=== PATIENT | male | born 1970 | race African-American/Black ===

== ENCOUNTER 2020-03-08 03:37 | Emergency (ER) | payer OTHER, SELFPAY ==
--- NOTE | ~2020-03-08 | XR_ITS ---
EXAMINATION: XR ribs RT 2V w CXR 2V DATE: 03/08/2020 05:00 INDICATION: Midsternal chest pain TECHNIQUE: PA and lateral views of the chest and 3 views of the right ribs were obtained. COMPARISON: Chest radiograph dated 04/10/2019 FINDINGS: No rib fractures identified. Mild linear discoid atelectasis in the right middle lobe. No other airsp jesse opacities, pulmonary edema, pleural effusion or pneumothorax. Cardiomediastinal silhouette is nor mal. IMPRESSION: 1. Mild discoid atelectasis in the right middle lobe. No rib fracture or acute cardiopulmonary diseas e. Reviewed, dictated and finalized at location A. IMPRESSION: 1. Mild discoid atelectasis in the right middle lobe. No rib fracture or acute cardiopulmonary disease.
[2020-03-08 03:40] VITALS: BP 151/116; PULSE 78; RESP 18; TEMP 36.8; O2SAT 98
--- NOTE | 2020-03-08 04:31 | ECG_ITS ---
Measurements Intervals [place] Rate: 79 P: 36 [place]: 156 QRS: 18 QRSD: 99 T: 30 QT: 385 QTc: 441 Interpretive Statements SINUS RHYTHM VOLTAGE CRITERIAL FOR LVH NONSPECIFIC T-WAVE ABNORMALITY- INFERIOR LEADS BASELINE ARTIFACT- I, III BORDERLINE ECG Electronically Signed On 03-08-2020 7:06:38 CDT by Raymundo Catalan D.O.
[2020-03-08] MEDS: ACETAMINOPHEN 325 MG TABLET 650 MG PO (05:13)
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
[2020-03-08 06:26] VITALS: BP 141/87; PULSE 78; RESP 16; O2SAT 100
== END 2020-03-08 06:27 | disposition home or self-care (01) ==
PROVIDERS: Emergency Provider Emergency Medicine; PCP Internal Medicine Infectious Disease
DX: F32.9 Major depressive disorder, single episode, unspecified (principal); I10 Essential (primary) hypertension; Z87.820 Personal history of traumatic brain injury; F17.200 Nicotine dependence, unspecified, uncomplicated; R07.89 Other chest pain; R94.31 Abnormal electrocardiogram [ECG] [EKG]
CPT/HCPCS: 71046; 71100; 93005; 99284; A9270

== ENCOUNTER 2021-04-16 00:18 | Emergency (ER) | payer OTHER, SELFPAY ==
[2021-04-16 00:35] VITALS: BP 143/90; PULSE 84; RESP 18; TEMP 36.9; O2SAT 95
--- NOTE | 2021-04-16 00:50 | ECG_ITS ---
Measurements Intervals [place] Rate: 85 P: 50 [place]: 154 QRS: 29 QRSD: 111 T: 13 QT: 384 QTc: 458 Interpretive Statements SINUS RHYTHM INTRAVENTRICULAR CONDUCTION DELAY NONSPECIFIC T-WAVE ABNORMALITY- INFERIOR LEADS BORDERLINE ECG Electronically Signed On 04-16-2021 6:55:58 CDT by Raymundo Catalan D.O.
[2021-04-16 01:38] LABS: Basophils Percent Auto 0.5 % (0.2-1.2); Eosinophils Absolute Auto 0.2 K/mm3 (0-0.3); Eosinophils Percent Auto 1.8 % (0-4.4); Hematocrit 46.8 % (42.0-52.0); Hemoglobin 15.7 g/dL (14.0-18.0); Immature Granulocyte Absolute 0.03 K/mm3 (0.00-0.031); Immature Granulocyte Percent A 0.4 % (0-0.5); Lymphocytes Absolute Auto 2.96 K/mm3 (0.9-3.2); Lymphocytes Percent Auto 34.9 % (18.3-44.2); Mean Corpuscular HGB Conc 33.5 g/dl (32-36); Mean Corpuscular Hemoglobin 29.3 pg (26-34); Mean Corpuscular Volume 87.3 fl (80-100); Mean Platelet Volume 10.6 fl (7.4-10.4); Monocytes Absolute Auto 0.7 K/mm3 (0.1-0.6); Monocytes Percent Auto 8.6 % (2.6-8.5); Neutrophils Absolute Auto 4.6 K/mm3 (1.3-6.7); Neutrophils Percent Auto 53.8 % (45.5-73.1); Platelet Count Result 219 k/mm3 (150-375); Red Blood Count 5.36 M/mm3 (4.6-6.20); Red Cell Distribution Width 13.7 % (11.5-14.5); White Blood Count 8.5 K/mm3 (4.5-10.0)
[2021-04-16 01:40] LABS: Alanine Aminotransferase 33 U/L (4-50); Albumin Level 4.8 g/dL (3.5-5.1); Alkaline Phosphatase 70 U/L (38-126); Anion Gap 14 mmol/L (8-16); Aspartate Amino Transferase 31 U/L (17-59); Bilirubin,Total 0.2 mg/dL (0.2-1.3); Blood Urea Nitrogen 10 mg/dL (9-20); Calcium 9.6 mg/dL (8.4-10.2); Carbon Dioxide 21 mmol/L (22-30); Chloride 100 mmol/L (98-107); Estimated Glomerular Filt Rate > 60; Glucose 82 mg/dL (65-110); Potassium 3.7 mmol/L (3.4-5.0); Sodium 135 mmol/L (137-145)
[2021-04-16 01:49] LABS: Ethanol 118 mg/dL (<10)
--- NOTE | 2021-04-16 02:06 | ED.GENADULT ---
HPI - General Adult General Chief complaint: Seizure Stated complaint: seizure Time Seen by Provider: 04/16/21 00:57 History of Present Illness HPI narrative: Patient is a 50-year-old gentleman who presents the emergency department with chief complaint of possible seizure. The patient was found down by a local bar and was slightly confused afterwards. The patient upon arrival to the emergency department has no complaints at this time reports that he has a seizure history and reports he may have had a seizure. The patient states currently he has no complaints. Related Data Home Medications Medication Instructions Recorded Confirmed amlodipine 10 mg PO DAILY 07/12/19 07/12/19 citalopram 40 mg PO DAILY 07/12/19 07/12/19 doxycycline monohydrate 100 mg PO BID 07/12/19 07/12/19 folic acid 1 mg PO DAILY 07/12/19 07/12/19 oxcarbazepine 300 mg PO BID 07/12/19 07/12/19 ranitidine HCl 150 mg PO BID 07/12/19 07/12/19 spironolactone 50 mg PO DAILY 07/12/19 07/12/19 umeclidinium [Incruse Ellipta] 1 inh INHALATION DAILY 07/12/19 07/12/19 Allergies Allergy/AdvReac Type Severity Reaction Status Date / Time lisinopril Allergy Severe angio edema Verified 04/28/20 09:04 Iodinated Contrast Media Allergy Unknown Verified 04/28/20 09:04 iodine Allergy Unknown Verified 04/28/20 09:04 Contrast Media Allergy Mild Uncoded 04/28/20 09:04 Review of Systems Review of Systems: A 10 system review of systems was completed on the patient and is negative except for what is stated in the HPI. Nursing and ancillary documentation was reviewed. [facility] Past Medical History Medical History Depression Hypertension Polysubstance abuse Seizures Traumatic brain injury Surgical History Surgical History H/O craniotomy Family History Family History Other Diabetes mellitus Family history of seizure disorder Social History Social History Smoking status: Current every day smoker Alcohol intake: current Substance use type: crack/cocaine Gender identity (if verbalized by the patient): Male Exam Narrative: GENERAL: Well-appearing, well-nourished, and in no acute distress. HEAD: Normocephalic, atraumatic. EYES: PERRLA and EOMI. ENT: Nares clear, no rhinorrhea or epistaxis. Mucous membranes moist. NECK: Supple. CHEST: Clear to auscultation. No respiratory distress. HEART: Regular rate and rhythm. No murmur heard. Normal peripheral pulses. ABDOMEN: Soft, nontender, nondistended, normal active bowel sounds. EXTREMITIES: Normal range of motion. No edema. SKIN: Warm, dry, no rash. NEURO: No focal deficits. Alert and oriented x3 at baseline neurological status history of TBI. PSYCH: Normal mood and affect. Course Course Emergency Course: Patient has been observed in the emergency department and is currently back to his baseline and has no complaints Vital Signs Vital signs: Vital Signs Temperature 36.9 C 04/16/21 00:35 Pulse Rate 84 04/16/21 00:35 Respiratory Rate 18 04/16/21 00:35 Blood Pressure 143/90 H 04/16/21 00:35 Pulse Oximetry 95 04/16/21 00:35 Temperature 36.9 C 04/16/21 00:35 Pulse Rate 84 04/16/21 00:35 Respiratory Rate 18 04/16/21 00:35 Blood Pressure 143/90 H 04/16/21 00:35 Pulse Oximetry 95 04/16/21 00:35 Medical Decision Making Vital Signs Vital Signs: Vital Signs Temperature 36.9 C 04/16/21 00:35 Pulse Rate 84 04/16/21 00:35 Respiratory Rate 18 04/16/21 00:35 Blood Pressure 143/90 H 04/16/21 00:35 Pulse Oximetry 95 04/16/21 00:35 Temperature 36.9 C 04/16/21 00:35 Pulse Rate 84 04/16/21 00:35 Respiratory Rate 18 04/16/21 00:35 Blood Pressure 143/90 H 04/16/21 00:35 Pulse Oximetry 95 04/16/21 00:3
[2021-04-16 02:27] VITALS: BP 140/71; PULSE 80; RESP 18; O2SAT 99
== END 2021-04-16 02:28 | disposition home or self-care (01) ==
PROVIDERS: Emergency Provider Emergency Medicine; PCP Internal Medicine Infectious Disease
DX: G40.909 Epilepsy, unspecified, not intractable, without status epilepticus (principal); F32.9 Major depressive disorder, single episode, unspecified; I10 Essential (primary) hypertension; F17.200 Nicotine dependence, unspecified, uncomplicated
CPT/HCPCS: 36415; 80053; 80307; 85025; 85055; 93005; 99283

== ENCOUNTER 2021-07-11 14:45 | Emergency (ER) | payer OTHER, SELFPAY ==
--- NOTE | ~2021-07-11 | XR_ITS ---
EXAMINATION: XR chest 1V portable INDICATION: Seizure TECHNIQUE: Portable AP chest at 1541 hours COMPARISON: 03/08/2021 FINDINGS: The lungs are free of acute opacities. There is no pleural effusion or pneumothorax. The ca rdiomediastinal silhouette is normal. IMPRESSION: 1. No acute cardiopulmonary abnormality. Reviewed, dictated and finalized at location B. E [employer]
[2021-07-11 14:43] VITALS: BP 133/77; PULSE 98; RESP 20; TEMP 36.9; O2SAT 92
[2021-07-11 14:53] VITALS: BP 127/85; PULSE 90; RESP 15; O2SAT 96
[2021-07-11 15:03] VITALS: BP 119/75; PULSE 90; RESP 15; O2SAT 94
[2021-07-11 15:31] VITALS: BP 105/71; PULSE 89; RESP 15
[2021-07-11 15:42] LABS: Basophils Percent Auto 0.6 % (0.2-1.2); Eosinophils Absolute Auto 0.2 K/mm3 (0-0.3); Eosinophils Percent Auto 2.2 % (0-4.4); Hematocrit 48.5 % (42.0-52.0); Hemoglobin 16.7 g/dL (14.0-18.0); Immature Granulocyte Absolute 0.02 K/mm3 (0.00-0.031); Immature Granulocyte Percent A 0.3 % (0-0.5); Lymphocytes Absolute Auto 1.63 K/mm3 (0.9-3.2); Lymphocytes Percent Auto 24.4 % (18.3-44.2); Mean Corpuscular HGB Conc 34.4 g/dl (32-36); Mean Corpuscular Hemoglobin 29.7 pg (26-34); Mean Corpuscular Volume 86.1 fl (80-100); Mean Platelet Volume 10.7 fl (7.4-10.4); Monocytes Absolute Auto 0.7 K/mm3 (0.1-0.6); Monocytes Percent Auto 10.2 % (2.6-8.5); Neutrophils Absolute Auto 4.2 K/mm3 (1.3-6.7); Neutrophils Percent Auto 62.3 % (45.5-73.1); Platelet Count Result 261 k/mm3 (150-375); Red Blood Count 5.63 M/mm3 (4.6-6.20); Red Cell Distribution Width 13.7 % (11.5-14.5); White Blood Count 6.7 K/mm3 (4.5-10.0)
[2021-07-11 16:47] LABS: Alanine Aminotransferase 42 U/L (4-50); Albumin Level 4.8 g/dL (3.5-5.1); Alkaline Phosphatase 78 U/L (38-126); Anion Gap 10 mmol/L (8-16); Aspartate Amino Transferase 32 U/L (17-59); Bilirubin,Total 0.6 mg/dL (0.2-1.3); Blood Urea Nitrogen 13 mg/dL (9-20); Calcium 9.3 mg/dL (8.4-10.2); Carbon Dioxide 23 mmol/L (22-30); Chloride 106 mmol/L (98-107); Estimated Glomerular Filt Rate > 60; Glucose 103 mg/dL (65-110); Magnesium 2.4 mg/dL (1.6-2.3); Potassium 4.2 mmol/L (3.4-5.0); Sodium 139 mmol/L (137-145)
[2021-07-11 17:18] VITALS: BP 115/68; PULSE 80; RESP 13; O2SAT 99
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
[2021-07-11 18:30] VITALS: BP 125/84; PULSE 79; RESP 16; O2SAT 99
== END 2021-07-11 18:30 | disposition home or self-care (01) ==
PROVIDERS: Physician Assistant; Emergency Provider Family Medicine; PCP Internal Medicine Infectious Disease
DX: G40.909 Epilepsy, unspecified, not intractable, without status epilepticus (principal); I10 Essential (primary) hypertension; F17.200 Nicotine dependence, unspecified, uncomplicated
CPT/HCPCS: 36415; 71045; 80053; 83735; 85025; 99283

== ENCOUNTER 2021-07-15 16:11 | Observation (INO) | payer OTHER, SELFPAY ==
[2021-07-15] VITALS (13 sets, daily range): BP systolic 125–166; BP diastolic 87–111; PULSE 96–147; RESP 15–25; TEMP 36.5–37.4; O2SAT 95–100; BMI 28.0
--- NOTE | ~2021-07-15 | CT_ITS ---
EXAMINATION: CT brain wo con INDICATION: Transient alteration of awareness COMPARISON: 08/20/2018 TECHNIQUE: Standard unenhanced head CT. The dose-length product (DLP) was 681.00 mGy-cm. The mA was a djusted according to patient size. Iterative reconstruction technique was employed. FINDINGS: There is no intracranial hemorrhage, acute infarction, or abnormal mass lesion. There is an old infarct of the left temporal, frontal, and parietal lobes and left insula. The ventricles are no rmal. There is no abnormal mass effect or midline shift. The quinn-white matter differentiation is nor mal. The basal cisterns are patent. The orbits are normal. There is mild mucosal thickening of the pa ranasal sinuses. IMPRESSION: 1. 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 Reviewed, dictated and finalized at location A. PRESSMAN
--- NOTE | ~2021-07-15 | XR_ITS ---
EXAMINATION: XR chest 1V portable INDICATION: Tachycardia, transient alteration of awareness TECHNIQUE: Portable AP chest at 1650 hours COMPARISON: 07/11/2021 FINDINGS: The lungs are free of acute opacities. There is no pleural effusion or pneumothorax. The ca rdiomediastinal silhouette is normal. There is severe lower cervical spondylosis. IMPRESSION: 1. No acute cardiopulmonary abnormality. Reviewed, dictated and finalized at location A. D [employer]
--- NOTE | 2021-07-15 16:29 | PC.NURSE ---
Pt is combative and not following commands at this time, attempted IV access x2 doctor and charge nurse aware
--- NOTE | 2021-07-15 16:31 | ECG_ITS ---
Measurements Intervals [place] Rate: 112 P: 36 [place]: 142 QRS: 47 QRSD: 91 T: 35 QT: 330 QTc: 451 Interpretive Statements SINUS TACHYCARDIA NONSPECIFIC T-WAVE ABNORMALITY- LATERAL LEADS BASELINE WANDER- I, II, III, AVF ABNORMAL ECG Electronically Signed On 07-16-2021 7:12:18 [employer] by Raymundo Catalan D.O.
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
--- NOTE | 2021-07-15 17:58 | PC.NURSE ---
Multiple attempts by nurses to get IV access, ultrasound attempt x1,MD aware
--- NOTE | 2021-07-15 17:59 | PC.NURSE ---
pt is more awake but continues to move and remove monitoring
[2021-07-15 18:10] LABS: Basophils Percent Auto 0.3 % (0.2-1.2); Eosinophils Percent Auto 0.1 % (0-4.4); Hematocrit 46.4 % (42.0-52.0); Hemoglobin 16.1 g/dL (14.0-18.0); Immature Granulocyte Absolute 0.08 K/mm3 (0.00-0.031); Immature Granulocyte Percent A 0.7 % (0-0.5); Lymphocytes Absolute Auto 0.84 K/mm3 (0.9-3.2); Lymphocytes Percent Auto 7.4 % (18.3-44.2); Mean Corpuscular HGB Conc 34.7 g/dl (32-36); Mean Corpuscular Hemoglobin 30.1 pg (26-34); Mean Corpuscular Volume 86.9 fl (80-100); Monocytes Absolute Auto 0.7 K/mm3 (0.1-0.6); Monocytes Percent Auto 5.7 % (2.6-8.5); Neutrophils Absolute Auto 9.8 K/mm3 (1.3-6.7); Neutrophils Percent Auto 85.8 % (45.5-73.1); Platelet Count Result 285 k/mm3 (150-375); Red Blood Count 5.34 M/mm3 (4.6-6.20); Red Cell Distribution Width 13.7 % (11.5-14.5); White Blood Count 11.4 K/mm3 (4.5-10.0)
[2021-07-15 18:19] LABS: Ethanol < 10 mg/dL (<10)
[2021-07-15 18:24] LABS: D Dimer 0.43 ug/mL (<0.48)
[2021-07-15 18:27] LABS: INR 0.9; Prothrombin Time 12.4 Seconds (11.1-14.7)
[2021-07-15 18:33] LABS: Partial Thromboplastin Time < 20.0 SECONDS (22.3-36.8)
[2021-07-15 19:00] LABS: Alanine Aminotransferase 31 U/L (4-50); Albumin Level 4.7 g/dL (3.5-5.1); Alkaline Phosphatase 84 U/L (38-126); Anion Gap 10 mmol/L (8-16); Aspartate Amino Transferase 26 U/L (17-59); Bilirubin,Total 0.5 mg/dL (0.2-1.3); Blood Urea Nitrogen 11 mg/dL (9-20); Calcium 9.4 mg/dL (8.4-10.2); Carbon Dioxide 23 mmol/L (22-30); Chloride 105 mmol/L (98-107); Estimated CRCL calculation 129 ml/min; Estimated Glomerular Filt Rate > 60; Glucose 105 mg/dL (65-110); Potassium 4.4 mmol/L (3.4-5.0); Sodium 138 mmol/L (137-145)
[2021-07-15 19:19] LABS: Troponin I 0.069 ng/mL (0.000-0.034)
[2021-07-15 19:23] LABS: Add Urine Microscopic? YES; Appearance Urine Clear (Clear); Bilirubin Urine Negative (Negative); Blood Urine Negative (Negative); Color Urine Yellow (Yellow); Glucose Urine UA Negative (Negative); Ketones Urine Negative (Negative); Leukocyte Esterase Ur Negative LEU/UL (Negative); Nitrate Urine Negative (Negative); Protein Urine 1+ mg/dL (Negative); RBC Urine 0-2 /hpf (0-2); Specific Grav Ur 1.016 (1.001-1.035); Squamous Epithelial Cell Urine Rare /hpf (Few); Urobilinogen Urine Negative mg/dL (<2.0); WBC Urine 0-3 /hpf
[2021-07-15] MEDS: ACETAMINOPHEN 500 MG TABLET 1000 MG PO (19:26)
[2021-07-15 19:30] LABS: Thyroid Stimulating Hormone 0.411 uIU/mL (0.465-4.680)
[2021-07-15 20:01] LABS: Amphetamine Screen Urine Negative (Negative); Barbiturate Screen Urine Negative (Negative); Benzodiazepines Screen Urine Positive (Negative); Cannabinoid Screen Urine Positive (Negative); Cocaine Screen Urine Negative (Negative); Methadone Screen Urine Negative (Negative); Opiate Screen Urine Negative (Negative); Phencyclidine Screen Urine Negative (Negative)
[2021-07-15 20:05] LABS: Free T4 Free Thyroxine 0.67 ng/mL (0.78-2.19)
--- NOTE | 2021-07-15 21:24 | PM.IMHP ---
H&P: HPI History of Present Illness Date/Time: 07/15/21 21:24 Chief Complaint: Seizure. Narrative: This is a 50-year-old male with past medical history significant for polysubstance abuse, tobacco dependence, crack cocaine use, hypertension, seizure disorder, stroke. Patient was brought to the emergency room after her motor witnessed a seizure episode EMS was called. At the time of my visit patient was very circumstantial mother was at bedside most of the history was obtained from the mother. According to the mother his has been his usual state of health she denies using cocaine recently but has been smoking marijuana. Patient denied any discomfort at the time of my visit no fevers, no rigors, no chills, no cough, no sputum production, no shortness of breath, no nausea ,no vomiting, no abdominal pain, no diarrhea. Patient did complain of chest pain and preliminary troponin was slightly elevated decision has been made to admit the patient for further management evaluation and treatment. Review of Systems Review of Systems: Seizure disorder ROS unobtainable: Yes unobtainable due to medical condition and unobtainable due to mental status (Post ictal circumstancial) [facility] Past Medical History Medical History (Updated 07/16/21 @ 03:01 by Surya Smart MD) Depression Hypertension Polysubstance abuse Seizures Traumatic brain injury Surgical History Surgical History H/O craniotomy Family History Family History Mother Diabetes mellitus Social History Social History Smoking packs per day: 0.5 Smoking cigarettes per day: 10.0 Years smoked: 35 Smoking pack-years: 17.50 Smoking status: Heavy tobacco smoker Tobacco type: cigarettes Alcohol intake: current Drinks per week: 7 Substance use: current Substance use type: marijuana Other substance usage details: Usually drinks a pint of alcohol daily, last drink 07/11/21 Last use: Cocaine in the past Gender identity (if verbalized by the patient): Male Spiritual care concerns: No Meds Home Medications and Allergies Home Medications Medication Instructions Recorded Confirmed Type amlodipine 10 mg PO DAILY 07/12/19 07/15/21 History citalopram 40 mg PO DAILY 07/12/19 07/15/21 History folic acid 1 mg PO DAILY 07/12/19 07/15/21 History oxcarbazepine 600 mg PO BID 07/12/19 07/15/21 History spironolactone 50 mg PO DAILY 07/12/19 07/15/21 History acetaminophen 500 mg PO Q6H PRN #14 cap 03/08/20 07/15/21 Rx albuterol sulfate 1 puff INHALATION BID PRN 07/15/21 07/15/21 History famotidine 40 mg PO BID 07/15/21 07/15/21 History glycopyrrolate-formoterol [Bevespi 2 inh INHALATION BID 07/15/21 07/15/21 History Aerosphere] Allergies Allergy/AdvReac Type Severity Reaction Status Date / Time lisinopril Allergy Severe angio edema Verified 04/28/20 09:04 Iodinated Contrast Media Allergy Unknown Verified 04/28/20 09:04 iodine Allergy Unknown Verified 04/28/20 09:04 Contrast Media Allergy Mild Uncoded 04/28/20 09:04 Vital Signs Vital Signs - 24 hr 07/15/21 16:14 07/15/21 16:15 07/15/21 16:16 Temperature Pulse Rate 120 H 142 H 120 H Respiratory Rate 18 25 H 18 Blood Pressure 157/96 H 157/96 H Pulse Oximetry 95 96 07/15/21 16:17 07/15/21 19:27 Temperature 98.8 F 98.0 F Pulse Rate 147 H 100 Respiratory Rate 15 20 Blood Pressure 166/110 H Pulse Oximetry 97 100 Exam Narrative: Laying in [facility] Const: General: cooperative, comfortable, no acute distress, well developed, alert and awake Nutritional Appearance: average body habitus Orientation/consciousness: oriented to person, oriented to place and Other orientation findings (Post ictal) HENMT: Head: normal to inspection, normocephalic and atraumatic Ears: hearing grossly normal bilaterally General nose ex
[2021-07-15 21:45] LABS: Troponin I 0.096 ng/mL (0.000-0.034)
--- NOTE | 2021-07-15 23:21 | PC.NURSE ---
This patient, Zen Machado, was admitted to IMU Room 205-01. Patient/family oriented to hospital policies and general routines including ID bracelet, bed and alarms, visiting hours, pain management, procedures, bathroom and other care routines, personal items, smoking policy, room service/diet, and visiting hours. Information on how to activate the Rapid Response Team has been discussed. Patient/Family are encouraged to report perceived risks to care and to ask questions if they do not understand what they are told or what they should do.
[2021-07-16] VITALS (19 sets, daily range): BP systolic 120–143; BP diastolic 70–88; PULSE 77–92; RESP 18–26; TEMP 35.8–37.1; O2SAT 95–99
[2021-07-16] MEDS: OXcarbazepine 300 MG TABLET 600 MG PO ×3 (00:29→16:07)
--- NOTE | 2021-07-16 01:10 | PHAR ---
VERIFIED HOME MED: *USE FROM HOME* Glycopyrrolate-Formoterol [Bevespi Aerosphere] 9-4.8 mcg HFA Inhale 2 puffs twice daily
[2021-07-16 04:48] LABS: Basophils Percent Auto 0.5 % (0.2-1.2); Eosinophils Absolute Auto 0.1 K/mm3 (0-0.3); Eosinophils Percent Auto 1.3 % (0-4.4); Hemoglobin 15.1 g/dL (14.0-18.0); Immature Granulocyte Absolute 0.03 K/mm3 (0.00-0.031); Immature Granulocyte Percent A 0.3 % (0-0.5); Lymphocytes Absolute Auto 2.46 K/mm3 (0.9-3.2); Lymphocytes Percent Auto 28.3 % (18.3-44.2); Mean Corpuscular HGB Conc 34.3 g/dl (32-36); Mean Corpuscular Volume 87.3 fl (80-100); Monocytes Absolute Auto 0.9 K/mm3 (0.1-0.6); Monocytes Percent Auto 10.1 % (2.6-8.5); Neutrophils Absolute Auto 5.2 K/mm3 (1.3-6.7); Neutrophils Percent Auto 59.5 % (45.5-73.1); Platelet Count Result 230 k/mm3 (150-375); Red Blood Count 5.04 M/mm3 (4.6-6.20); Red Cell Distribution Width 13.4 % (11.5-14.5); White Blood Count 8.7 K/mm3 (4.5-10.0)
[2021-07-16 05:06] LABS: Anion Gap 9 mmol/L (8-16); Blood Urea Nitrogen 11 mg/dL (9-20); Calcium 9.2 mg/dL (8.4-10.2); Carbon Dioxide 24 mmol/L (22-30); Chloride 105 mmol/L (98-107); Estimated CRCL calculation 88 ml/min; Estimated Glomerular Filt Rate > 60; Glucose 115 mg/dL (65-110); Potassium 3.4 mmol/L (3.4-5.0); Sodium 138 mmol/L (137-145)
[2021-07-16 08:13] LABS: Magnesium 2.6 mg/dL (1.6-2.3)
[2021-07-16] MEDS: amLODIPine BESYLATE 5 MG TABLET 10 MG PO (09:31)
[2021-07-16] MEDS: FAMOTIDINE 20 MG TABLET 40 MG PO ×2 (09:31→16:06)
[2021-07-16] MEDS: FOLIC ACID 1 MG TABLET PO (09:32)
[2021-07-16] MEDS: SPIRONOLACTONE 50 MG TABLET PO (09:32)
[2021-07-16] MEDS: CITALOPRAM HYDROBROMIDE 20 MG TABLET 40 MG PO (09:32)
--- NOTE | 2021-07-16 09:40 | WPDNEURCNPN ---
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 Drug abuse 3. Recent seizure plan is to continue the anticonvulsants Simba Triplett if no other contraindication Consult date: 07/16/21 HPI: Zen Machado is a 50 year old male admitted to the hospital for the complaints of seizure in addition to the history of poly substance abuse with tobacco dependence crack and cocaine use and hypertension and seizure disorder patient brought to the emergency room after seen having generalized seizure when the EMS were called to the scene initially seen by the physician mother was at the bedside who reported that he was in usual state of health and did not give history of cocaine recently but reported he has been smoking marijuana. Does have ongoing history of hypertension, depression, polysubstance abuse, and seizures related to the previous traumatic brain injury as well patient has undergone craniotomy. Patient has a smoking history of ears 35 current alcohol drinker at least 7 drinks per week current substance user and marijuana user in addition to cocaine in the past medications include oxcarbazepine 600 b.i.d. in addition to other medication Review of Systems Review of Systems: All systems reviewed & are unremarkable except as noted in HPI and below PMFSH Past Medical History Medical History Depression Hypertension Polysubstance abuse Seizures Traumatic brain injury Surgical History Surgical History H/O craniotomy Family History Family History Mother Diabetes mellitus Social History Social History Smoking packs per day: 0.5 Smoking cigarettes per day: 10.0 Years smoked: 35 Smoking pack-years: 17.50 Smoking status: Heavy tobacco smoker Tobacco type: cigarettes Alcohol intake: current Drinks per week: 7 Substance use: current Substance use type: marijuana Other substance usage details: Usually drinks a pint of alcohol daily, last drink 07/11/21 Last use: Cocaine in the past Gender identity (if verbalized by the patient): Male Spiritual care concerns: No Meds Home Medications and Allergies Home Medications Medication Instructions Recorded Confirmed Type amlodipine 10 mg PO DAILY 07/12/19 07/15/21 History citalopram 40 mg PO DAILY 07/12/19 07/15/21 History folic acid 1 mg PO DAILY 07/12/19 07/15/21 History oxcarbazepine 600 mg PO BID 07/12/19 07/15/21 History spironolactone 50 mg PO DAILY 07/12/19 07/15/21 History acetaminophen 500 mg PO Q6H PRN #14 cap 03/08/20 07/15/21 Rx albuterol sulfate 1 puff INHALATION BID PRN 07/15/21 07/15/21 History famotidine 40 mg PO BID 07/15/21 07/15/21 History glycopyrrolate-formoterol [Bevespi 2 inh INHALATION BID 07/15/21 07/15/21 History Aerosphere] Allergies Allergy/AdvReac Type Severity Reaction Status Date / Time lisinopril Allergy Severe angio edema Verified 04/28/20 09:04 Iodinated Contrast Media Allergy Unknown Verified 04/28/20 09:04 iodine Allergy Unknown Verified 04/28/20 09:04 Contrast Media Allergy Mild Uncoded 04/28/20 09:04 Vital Signs Vital Signs - 24 hr 07/15/21 16:14 07/15/21 16:15 07/15/21 16:16 Temperature Pulse Rate 120 H 142 H 120 H Respiratory Rate 18 25 H 18 Blood Pressure 157/96 H 157/96 H Pulse Oximetry 95 96 07/15/21 16:17 07/15/21 19:12 07/15/21 19:15 Temperature 37.1 C Pulse Rate 147 H Respiratory Rate 15 Blood Pressure Pulse Oximetry 97 96 98 07/15/21 19:27 07/15/21 19:31 07/15/21 19:32 Temperature 36.7 C Pulse Rate 100 Respiratory Rate 20 Blood Pressure 166/110 H 166/111 H Pulse Oximetry 100 100 99 07/15/21 19:45 07/15/21 21:54 07/15/21 22:38 Temperature
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
--- NOTE | 2021-07-16 13:16 | PM.IMPN ---
Progress Note: A&P Assessment and Plan (1) Elevated troponin: Code(s): R77.8 - Other specified abnormalities of plasma proteins Status: Acute Assessment and Plan: Admitted to IMU Will trend troponins Repeat EKG in the morning Consider cardiology consult Doubtful of acute coronary syndrome Current ECG shows sinus tachycardia 07/16/2021 Interval history: 50-year-old male with a history of illicit drug abuse cocaine and marijuana with history of seizures had a witnessed seizure by his mother and brought emergency department for further evaluation, patient with history of seizure secondary to the previous traumatic brain injury as well patient has undergone craniotomy. according to family patient has been taking his seizure medication seen by neurologist recommended to continue present management with Keppra will continue to monitor, patient also has elevated tropes seen by Cardiology and suspect most likely demand ischemia due to seizures and no ischemic workup is recommended, patient urine drug tox showed positive for cannabis, and benzodiazepine most likely receive in the ER,will continue to monitor have PT OT evaluate the patient (2) Seizures: Code(s): R56.9 - Unspecified convulsions Status: Acute Assessment and Plan: Continue home meds Anti seizure precautions (3) Hypertension: Code(s): I10 - Essential (primary) hypertension Status: Acute Assessment and Plan: Continue home meds Continue to monitor (4) Cocaine abuse: Code(s): F14.10 - Cocaine abuse, uncomplicated Status: Acute Assessment and Plan: Unchanged Continue to monitor (5) Tobacco dependence: Code(s): F17.200 - Nicotine dependence, unspecified, uncomplicated Status: Acute Assessment and Plan: Nicotine patch as needed (6) Polysubstance abuse: Code(s): F19.10 - Other psychoactive substance abuse, uncomplicated Status: Acute Assessment and Plan: Follow-up in outpatient setting (7) Traumatic brain injury: Code(s): S06.9X9A - Unspecified intracranial injury with loss of consciousness of unspecified duration, initial encounter Status: Acute Assessment and Plan: Continue home meds Subjective Date/time seen: 07/16/21 13:16 Chief Complaint: Seizure. Narrative: This is a 50-year-old male with past medical history significant for polysubstance abuse, tobacco dependence, crack cocaine use, hypertension, seizure disorder, stroke. Patient was brought to the emergency room after her motor witnessed a seizure episode EMS was called. At the time of my visit patient was very circumstantial mother was at bedside most of the history was obtained from the mother. According to the mother his has been his usual state of health she denies using cocaine recently but has been smoking marijuana. Patient denied any discomfort at the time of my visit no fevers, no rigors, no chills, no cough, no sputum production, no shortness of breath, no nausea ,no vomiting, no abdominal pain, no diarrhea. Patient did complain of chest pain and preliminary troponin was slightly elevated decision has been made to admit the patient for further management evaluation and treatment. 07/16/2021 Interval history: 50-year-old male with a history of illicit drug abuse cocaine and marijuana with history of seizures had a witnessed seizure by his mother and brought emergency department for further evaluation, patient with history of seizure secondary to the previous traumatic brain injury as well patient has undergone craniotomy. according to family patient has been taking his seizure medication seen by neurologist recommended to continue present management with Keppra will continue to monitor, patient also has elevated tropes seen by Cardiology and suspect most likely demand ischemia due to seizures and no ischemic workup is recommended, patient urine zuleyma
--- NOTE | 2021-07-16 22:56 | PC.NURSE ---
This patient, Zen Machado, was transferred to [[id number] ] on 07/16/21 at 2256. Personal belongings sent with patient. Report given to [ ]. Appropriate documentation sent with patient.
--- NOTE | 2021-07-16 23:52 | PC.NURSE ---
Patient arrived on the unit at 1055 from IMU. Vitals were obtained and stable. Patient respirations even unlabored and patient does not appear to be in any distress at this time. Patient was placed on tele monitor as ordered. Patient has IV access and is saline locked. Seizure precautions initiated. Bed is padded for patient safety and bed alarm is on. Patient has a history of TBI and seizures. Patient skin is intact but has hives covering upper chest area. Patient is child like and has many questions but is pleasant. Patient was provided a meal tray upon his request. Patient is lying in bed watching TV and staff will continue to monitor.
[2021-07-17] VITALS: PULSE 79
--- NOTE | 2021-07-17 | ECHO_ITS ---
Patient Info Name: Zen Machado Age: 50 years : 1970 Gender: Male Ht: 70 in Wt: 198 lbs BSA: 2.12 m2 HR: 93 bpm BP: 145 / 87 mmHg Heart Rhythm: Sinus Rhythm Technical Quality: Good Exam Date: 07/17/2021 1:50 PM Exam Location: [facility] Patient Status: Outpatient Admit Date: 07/15/2021 Staff Ordering Physician: Jacobo Garcia MD Supervisor Hot Dip Plating: Cesia Almonte RDCS Attending Provider: Surya Smart MD Referring Physician: Radha LOCKETT; Exam Type: CA echo doppler color flow Study Info Indications - TROPONINEMIA Complete two-dimensional, color flow and Doppler transthoracic echocardiogram is performed. Summary 1. Complete two-dimensional, color flow and Doppler transthoracic echocardiogram is performed. 2. Essentially unremarkable echocardiogram. 3. No regional ischemic wall motion abnormalities were identified. Left Ventricle Left ventricular chamber dimension is normal. Left ventricular systolic function is normal, estimated at 60-65%. The left ventricular diastolic function is normal. Right Ventricle Right ventricular chamber dimension is normal. Left Atria Left atrial chamber dimension is normal. Right Atria Right atrial chamber dimension is normal. Aortic Valve The aortic valve is normal. Pulmonic Valve The pulmonic valve is not well visualized. Mitral Valve The mitral valve has normal leaflets. Tricuspid Valve The tricuspid valve leaflets are normal. Pericardium/Pleural The pericardium appears normal. Aorta The aortic root size at the sinus of Valsalva is normal. Left Ventricular Outflow Tract Name Value Normal LVOT 2D LVOT Diameter 2.0 cm LVOT Doppler LVOT Peak Gradient 6 mmHg LVOT Mean Gradient 3 mmHg LVOT VTI 21 cm LVOT VTI/AV VTI Ratio 0.9 LVOT Stroke Volume 68 ml LVOT CO 5.7 l/min LVOT CI 2.7 l/min/m2 Pulmonic Valve Name Value Normal RVOT Doppler RVOT Peak Gradient 3 mmHg PV Doppler PV Peak Gradient 4 mmHg Mitral Valve Name Value Normal MV Doppler MV Decel [place] 332 cm/s2 MV PHT 50 ms MV Area (PHT) 4.4 cm2 4.0-5.0 MV Diastolic Function
[2021-07-17 04:00] VITALS: PULSE 88
[2021-07-17 06:00] VITALS: BP 145/87; PULSE 80; RESP 20; TEMP 36.3; O2SAT 99
[2021-07-17] MEDS: amLODIPine BESYLATE 5 MG TABLET 10 MG PO (09:06)
[2021-07-17 09:07] VITALS: PULSE 86
[2021-07-17] MEDS: SPIRONOLACTONE 50 MG TABLET PO (09:07)
[2021-07-17] MEDS: FAMOTIDINE 20 MG TABLET 40 MG PO (09:07)
[2021-07-17] MEDS: FOLIC ACID 1 MG TABLET PO (09:07)
[2021-07-17] MEDS: OXcarbazepine 300 MG TABLET 600 MG PO (09:07)
[2021-07-17] MEDS: CITALOPRAM HYDROBROMIDE 20 MG TABLET 40 MG PO (09:07)
--- NOTE | 2021-07-17 09:42 | PM.DS ---
DS: Admitting Diagnosis Discharge Date 07/17/2021 Admitting Diagnosis seizures DS: Discharge Diagnosis Discharge Diagnosis (1) Elevated troponin: Code(s): R77.8 - Other specified abnormalities of plasma proteins Status: Acute Assessment and Plan: Admitted to IMU Will trend troponins Repeat EKG in the morning Consider cardiology consult Doubtful of acute coronary syndrome Current ECG shows sinus tachycardia 07/16/2021 Interval history: 50-year-old male with a history of illicit drug abuse cocaine and marijuana with history of seizures had a witnessed seizure by his mother and brought emergency department for further evaluation, patient with history of seizure secondary to the previous traumatic brain injury as well patient has undergone craniotomy. according to family patient has been taking his seizure medication seen by neurologist recommended to continue present management with Keppra will continue to monitor, patient also has elevated tropes seen by Cardiology and suspect most likely demand ischemia due to seizures and no ischemic workup is recommended, patient urine drug tox showed positive for cannabis, and benzodiazepine most likely receive in the ER,will continue to monitor have PT OT evaluate the patient (2) Seizures: Code(s): R56.9 - Unspecified convulsions Status: Acute Assessment and Plan: Continue home meds Anti seizure precautions (3) Hypertension: Code(s): I10 - Essential (primary) hypertension Status: Acute Assessment and Plan: Continue home meds Continue to monitor (4) Cocaine abuse: Code(s): F14.10 - Cocaine abuse, uncomplicated Status: Acute Assessment and Plan: Unchanged Continue to monitor (5) Tobacco dependence: Code(s): F17.200 - Nicotine dependence, unspecified, uncomplicated Status: Acute Assessment and Plan: Nicotine patch as needed (6) Polysubstance abuse: Code(s): F19.10 - Other psychoactive substance abuse, uncomplicated Status: Acute Assessment and Plan: Follow-up in outpatient setting (7) Traumatic brain injury: Code(s): S06.9X9A - Unspecified intracranial injury with loss of consciousness of unspecified duration, initial encounter Status: Acute Assessment and Plan: Continue home meds DS: Summary Hospital Course Reason for hospitalization: Chief Complaint: Seizure. Narrative: This is a 50-year-old male with past medical history significant for polysubstance abuse, tobacco dependence, crack cocaine use, hypertension, seizure disorder, stroke. Patient was brought to the emergency room after her motor witnessed a seizure episode EMS was called. At the time of my visit patient was very circumstantial mother was at bedside most of the history was obtained from the mother. According to the mother his has been his usual state of health she denies using cocaine recently but has been smoking marijuana. Patient denied any discomfort at the time of my visit no fevers, no rigors, no chills, no cough, no sputum production, no shortness of breath, no nausea ,no vomiting, no abdominal pain, no diarrhea. Patient did complain of chest pain and preliminary troponin was slightly elevated decision has been made to admit the patient for further management evaluation and treatment. Hospital Course: 07/16/2021 Interval history: 50-year-old male with a history of illicit drug abuse cocaine and marijuana with history of seizures had a witnessed seizure by his mother and brought emergency department for further evaluation, patient with history of seizure secondary to the previous traumatic brain injury as well patient has undergone craniotomy. according to family patient has been taking his seizure medication seen by neurologist recommended to continue present management with Kezeldara will continue to monitor, patient also has elevated tropes seen by Sidra
[2021-07-17 14:45] VITALS: BP 139/64; PULSE 85; RESP 14; TEMP 36.8; O2SAT 99
== END 2021-07-17 17:16 | disposition home or self-care (01) ==
LOC: ANHED 21:33 → ANHIMU 23:37 → ANH3MEDSUR 07-17 09:42 → ANHIMU 07-19 12:39
PROVIDERS: Admitting Provider Internal Medicine; Emergency Provider Nurse Practitioner; PCP Internal Medicine Infectious Disease; Visit Provider Family Medicine
DX: G40.909 Epilepsy, unspecified, not intractable, without status epilepticus (principal); R77.8 Other specified abnormalities of plasma proteins; I10 Essential (primary) hypertension; F19.10 Other psychoactive substance abuse, uncomplicated; F17.210 Nicotine dependence, cigarettes, uncomplicated; F14.10 Cocaine abuse, uncomplicated; Z87.820 Personal history of traumatic brain injury; Z79.899 Other long term (current) drug therapy
CPT/HCPCS: 36415; 70450; 71045; 80048; 80053; 80307; 81001; 83735; 84439; 84443; 84484; 85025; 85380; 85610; 85730; 93005; 93306; 94640; 99285; A9270; G0378; G0379

== ENCOUNTER 2021-08-12 15:41 | Emergency (ER) | payer OTHER, SELFPAY ==
[2021-08-12 15:44] VITALS: BP 140/95; PULSE 110; RESP 18; TEMP 36.1; O2SAT 97
[2021-08-12 16:16] LABS: Add Urine Microscopic? YES; Appearance Urine Clear (Clear); Bilirubin Urine Negative (Negative); Blood Urine Negative (Negative); Color Urine Yellow (Yellow); Glucose Urine UA Negative (Negative); Ketones Urine Trace mg/dL (Negative); Leukocyte Esterase Ur Negative LEU/UL (Negative); Nitrate Urine Negative (Negative); Protein Urine Negative (Negative); RBC Urine 0-2 /hpf (0-2); Squamous Epithelial Cell Urine Few /hpf (Few); Urobilinogen Urine Negative mg/dL (<2.0); WBC Urine 0-3 /hpf
--- NOTE | 2021-08-12 16:51 | ED.MALEGU ---
HPI - Male Genitourinary General Chief complaint: Urogenital-Male Stated complaint: i have a problem downstairs, it nagy Time Seen by Provider: 08/12/21 15:53 Source: patient Mode of arrival: ambulatory Limitations: no limitations History of Present Illness HPI Narrative: This is a 50-year-old male that presents to the emergency department for dysuria. Noted over the last couple of days. Associated with abnormal urethral discharge. Does report history of recent unprotected sex. Denies fever, rashes, or testicular/scrotal swelling. Related Data Home Medications Medication Instructions Recorded Confirmed amlodipine 10 mg PO DAILY 07/12/19 07/15/21 citalopram 40 mg PO DAILY 07/12/19 07/15/21 folic acid 1 mg PO DAILY 07/12/19 07/15/21 oxcarbazepine 600 mg PO BID 07/12/19 07/15/21 spironolactone 50 mg PO DAILY 07/12/19 07/15/21 Bevespi Aerosphere 2 inh INHALATION BID 07/15/21 07/15/21 albuterol sulfate 1 puff INHALATION BID PRN 07/15/21 07/15/21 famotidine 40 mg PO BID 07/15/21 07/15/21 Allergies Allergy/AdvReac Type Severity Reaction Status Date / Time lisinopril Allergy Severe angio edema Verified 04/28/20 09:04 Iodinated Contrast Media Allergy Unknown Verified 04/28/20 09:04 iodine Allergy Unknown Verified 04/28/20 09:04 Contrast Media Allergy Mild Uncoded 04/28/20 09:04 Review of Systems Review of Systems: CONSTITUTIONAL: Denies fever GENITOURINARY: Reports dysuria. Denies hematuria. SKIN: Denies rash or itching. All systems reviewed & are unremarkable except as noted in HPI and below PMFSH Past Medical History Medical History Depression Hypertension Polysubstance abuse Seizures Traumatic brain injury Surgical History Surgical History H/O craniotomy Family History Family History Mother Diabetes mellitus Social History Social History Smoking packs per day: 0.5 Smoking cigarettes per day: 10.0 Years smoked: 35 Smoking pack-years: 17.50 Smoking status: Heavy tobacco smoker Tobacco type: cigarettes Alcohol intake: current Drinks per week: 7 Substance use: current Substance use type: marijuana Other substance usage details: Usually drinks a pint of alcohol daily, last drink 07/11/21 Last use: Cocaine in the past Gender identity (if verbalized by the patient): Male Spiritual care concerns: No Exam Narrative: GENERAL: Well-appearing, well-nourished, and in no acute distress. HEAD: Normocephalic, atraumatic. EYES: EOMI. EXTREMITIES: Normal range of motion. No edema. SKIN: Warm, dry, no rash. NEURO: No focal deficits. Alert and oriented x3. PSYCH: Normal mood and affect MALE GENITAL: Normal external genitalia. No abnormal rashes or lesions. No abnormal testicular or scrotal swelling Course Vital Signs Vital signs: Vital Signs Temperature 96.9 F L 08/12/21 15:44 Pulse Rate 110 H 08/12/21 15:44 Respiratory Rate 18 08/12/21 15:44 Blood Pressure 140/95 H 08/12/21 15:44 Pulse Oximetry 97 08/12/21 15:44 Temperature 96.9 F L 08/12/21 15:44 Pulse Rate 110 H 08/12/21 15:44 Respiratory Rate 18 08/12/21 15:44 Blood Pressure 140/95 H 08/12/21 15:44 Pulse Oximetry 97 08/12/21 15:44 MDM - Male Genitourinary MDM Narrative Medical decision making narrative: Patient presents to the ER for dysuria and abnormal urethral discharge. UA is without evidence of infection. Chlamydia, gonorrhea and trichomonas were sent. Patient does report recent unprotected sex. Will be presumptively treated for STDs. He is to follow-up with primary care doctor. He was given warnings to return to the ER Lab Data Attestation: I reviewed the patient's lab results. Labs: Lab Results 08/12/21 08/12/21 08/12/21 Range/Units 15:58 15:58 16:01 Urine Color Yellow
[2021-08-12] MEDS: LIDOCAINE HCL 1% LOCAL INJ 20 ML VIAL (17:04)
[2021-08-12] MEDS: cefTRIAXone 1 GM VIAL 0.5 GM IM (17:04)
== END 2021-08-12 18:27 | disposition home or self-care (01) ==
PROVIDERS: Physician Assistant; Emergency Provider Emergency Medicine; PCP Internal Medicine Infectious Disease
DX: R30.0 Dysuria (principal); Z20.2 Contact with and (suspected) exposure to infections with a predominantly sexual mode of transmission
CPT/HCPCS: 81001; 87491; 87591; 87661; 96372; 99283; J0696

== ENCOUNTER 2021-12-19 08:51 | Emergency (ER) | payer OTHER, SELFPAY ==
[2021-12-19] VITALS (18 sets, daily range): BP systolic 117–157; BP diastolic 91–108; PULSE 73–89; RESP 6–20; TEMP 36.7; O2SAT 91–97
--- NOTE | ~2021-12-19 | CT_ITS ---
EXAMINATION: CT brain wo con DATE: 12/19/2021 09:53 INDICATION: Slurred speech. TECHNIQUE: Computed tomography (CT) of the head was performed without intravenous contrast. The mA wa s adjusted according to patient size. Iterative reconstruction technique was employed. The dose-lengt h product was 983.67 mGy-cm. COMPARISON: Head CT 07/15/2021 FINDINGS: There is chronic encephalomalacia involving the left frontal and temporal lobes, left front oparietal region, and left insula. There is no intracranial hemorrhage, acute infarction, or abnormal intracranial mass lesion. There is mild ex vacuo dilatation of left lateral ventricle. There are old blowout fractures of medial wall and floor of left orbit. There are old fracture deformities of the nasal bones. There is mild mucosal thickening in the paranasal sinuses. The mastoid air cells are nor mal. There are old rafi holes in the skull. IMPRESSION: 1. Chronic encephalomalacia involving left frontal and temporal lobes, left frontoparietal region, an d left insula. Reviewed, dictated and finalized at location B. IMPRESSION: 1. Chronic encephalomalacia involving left frontal and temporal lobes, left fro ntoparietal region, and left insula.
--- NOTE | 2021-12-19 08:54 | ECG_ITS ---
Measurements Intervals [place] Rate: 80 P: 40 NC: 157 QRS: 33 QRSD: 95 T: 36 QT: 391 QTc: 454 Interpretive Statements SINUS RHYTHM NONSPECIFIC T-WAVE ABNORMALITY COMPARED TO ECG 07/15/2021 17:28:20 SINUS RHYTHM NOW PRESENT Electronically Signed On 12-19-2021 11:13:35 CDT by Julian Patterson M.D.
--- NOTE | 2021-12-19 08:57 | ED.SEIZURE ---
HPI - Seizure General Chief Complaint: Seizure Stated Complaint: altered loc, ?seizure Time Seen by Provider: 12/19/21 08:54 Source: family, EMS and old records reviewed History of Present Illness HPI Narrative: 51-year-old male with a history of TBI, seizure disorder, polysubstance abuse, hypertension, presents with concern for seizure. Family reports he went to bed around 3 AM was his usual self this morning they found him he was briefly stiff and snore and confused family is concerned that maybe he had a seizure called EMS and was transferred to the ER for further evaluation. Seizure History: Yes Related Data Home Medications Medication Instructions Recorded Confirmed amlodipine 10 mg PO DAILY 07/12/19 07/15/21 citalopram 40 mg PO DAILY 07/12/19 07/15/21 folic acid 1 mg PO DAILY 07/12/19 07/15/21 oxcarbazepine 600 mg PO BID 07/12/19 07/15/21 spironolactone 50 mg PO DAILY 07/12/19 07/15/21 Bevespi Aerosphere 2 inh INHALATION BID 07/15/21 07/15/21 albuterol sulfate 1 puff INHALATION BID PRN 07/15/21 07/15/21 famotidine 40 mg PO BID 07/15/21 07/15/21 Allergies Allergy/AdvReac Type Severity Reaction Status Date / Time lisinopril Allergy Severe angio edema Verified 04/28/20 09:04 Iodinated Contrast Media Allergy Unknown Verified 04/28/20 09:04 iodine Allergy Unknown Verified 04/28/20 09:04 Contrast Media Allergy Mild Uncoded 04/28/20 09:04 Review of Systems Review of Systems: ROS unobtainable: Yes unobtainable due to medical condition PMFSH Past Medical History Medical History Depression Hypertension Polysubstance abuse Seizures Traumatic brain injury Surgical History Surgical History H/O craniotomy Family History Family History Mother Diabetes mellitus Social History Social History Smoking packs per day: 0.5 Smoking cigarettes per day: 10.0 Years smoked: 35 Smoking pack-years: 17.50 Smoking status: Heavy tobacco smoker Tobacco type: cigarettes Alcohol intake: current Drinks per week: 7 Substance use: current Substance use type: marijuana Other substance usage details: Usually drinks a pint of alcohol daily, last drink 07/11/21 Last use: Cocaine in the past Gender identity (if verbalized by the patient): Male Spiritual care concerns: No Exam Narrative: GENERAL: Well-appearing, well-nourished, and in no acute distress. HEAD: Normocephalic, atraumatic. EYES: PERRLA and EOMI. ENT: Nares clear, no rhinorrhea or epistaxis. Mucous membranes moist. NECK: Supple. No masses. No JVD CHEST: Clear to auscultation. No respiratory distress. No wheezes rales or rhonchi HEART: Regular rate and rhythm. No murmur heard. Normal peripheral pulses. ABDOMEN: Soft, nontender, nondistended. EXTREMITIES: Normal range of motion. No edema. SKIN: Warm, dry, no rash. NEURO: No focal deficits. Responsive to verbal stimuli PSYCH: Normal mood and affect. Course Reevaluation(s) Reevaluation #1: Patient more alert and talkative. Patient has no complaints he is unsure as to what happened this morning he reports he just feels very tired right now. He denies any focal areas of pain such as chest pain abdominal pain or shortness of breath. He denies any recent nausea or vomiting results and plan reviewed with patient. Patient is comfortable outpatient plan. Date: 12/19/21 Time: 11:24 Vital Signs Vital signs: Vital Signs Temperature 36.7 C 12/19/21 08:52 Pulse Rate 79 12/19/21 08:52 Respiratory Rate 20 12/19/21 08:52 Blood Pressure 117/95 H 12/19/21 08:52 Pulse Oximetry 97 12/19/21 08:52 Temperature 36.7 C 12/19/21 08:52 Pulse Rate 73 12/19/21 12:05 Respiratory Rate 15 12/19/21 12:05 Blood Pressure 146/107 H 12/19/21 12:29 Pulse Oximetry 92 0
--- NOTE | 2021-12-19 09:17 | PC.NURSE ---
multiple iv attempts unsuccessful.
[2021-12-19 09:51] LABS: Basophils Percent Auto 0.6 % (0.2-1.2); Eosinophils Absolute Auto 0.1 K/mm3 (0-0.3); Eosinophils Percent Auto 1.8 % (0-4.4); Hematocrit 47.1 % (42.0-52.0); Hemoglobin 16.2 g/dL (14.0-18.0); Immature Granulocyte Absolute 0.02 K/mm3 (0.00-0.031); Immature Granulocyte Percent A 0.3 % (0-0.5); Lymphocytes Absolute Auto 2.17 K/mm3 (0.9-3.2); Lymphocytes Percent Auto 32.6 % (18.3-44.2); Mean Corpuscular HGB Conc 34.4 g/dl (32-36); Mean Corpuscular Hemoglobin 29.5 pg (26-34); Mean Corpuscular Volume 85.8 fl (80-100); Mean Platelet Volume 10.2 fl (7.4-10.4); Monocytes Absolute Auto 0.7 K/mm3 (0.1-0.6); Monocytes Percent Auto 10.4 % (2.6-8.5); Neutrophils Absolute Auto 3.6 K/mm3 (1.3-6.7); Neutrophils Percent Auto 54.3 % (45.5-73.1); Platelet Count Result 227 k/mm3 (150-375); Red Blood Count 5.49 M/mm3 (4.6-6.20); Red Cell Distribution Width 13.5 % (11.5-14.5); White Blood Count 6.7 K/mm3 (4.5-10.0)
[2021-12-19 09:59] LABS: Alanine Aminotransferase 31 U/L (4-50); Albumin Level 4.5 g/dL (3.5-5.1); Alkaline Phosphatase 82 U/L (38-126); Anion Gap 8 mmol/L (8-16); Aspartate Amino Transferase 26 U/L (17-59); Bilirubin,Total 0.2 mg/dL (0.2-1.3); Blood Urea Nitrogen 15 mg/dL (9-20); Calcium 8.8 mg/dL (8.4-10.2); Carbon Dioxide 24 mmol/L (22-30); Chloride 104 mmol/L (98-107); Creatine Kinase 92 U/L (55-170); Estimated CRCL calculation 98 ml/min; Estimated Glomerular Filt Rate > 60; Glucose 113 mg/dL (65-110); Potassium 4.3 mmol/L (3.4-5.0); Sodium 136 mmol/L (137-145)
[2021-12-19 10:00] LABS: Ammonia < 9 umol/L (9-30); Ethanol < 10 mg/dL (<10)
[2021-12-19] MEDS: SODIUM CHLORIDE 0.9% IV 1,000 ML 999 ML IV CONT (10:10)
[2021-12-19 10:25] LABS: Appearance Urine Clear (Clear); Bilirubin Urine Negative (Negative); Color Urine Yellow (Yellow); Glucose Urine UA Negative (Negative); Ketones Urine Trace mg/dL (Negative); Leukocyte Esterase Ur Negative LEU/UL (Negative); Nitrate Urine Negative (Negative); Protein Urine Negative (Negative); Specific Grav Ur 1.025 (1.001-1.035); Urobilinogen Urine 0.2 mg/dL (<2.0)
[2021-12-19 10:34] LABS: Add Urine Microscopic? YES; Blood Urine Trace-Intact (Negative)
[2021-12-19 10:37] LABS: Amphetamine Screen Urine Negative (Negative); Barbiturate Screen Urine Negative (Negative); Benzodiazepines Screen Urine Negative (Negative); Cannabinoid Screen Urine Positive (Negative); Cocaine Screen Urine Negative (Negative); Methadone Screen Urine Negative (Negative); Mucus Urine Rare /lpf; Opiate Screen Urine Negative (Negative); Phencyclidine Screen Urine Negative (Negative); Squamous Epithelial Cell Urine Occasional /hpf (Few); WBC Urine 0-3 /hpf
--- NOTE | 2021-12-19 11:00 | PC.NURSE ---
pt sleeping soundly. arouses to verbal stimuli.
--- NOTE | 2021-12-19 12:00 | PC.NURSE ---
pt sitting on bed eating lunch. mother at bedside. pending discharge.
[2021-12-19 12:14] LABS: Glucose Point of Care 114 mg/dl (65-105)
--- NOTE | 2021-12-23 10:04 | PC.NURSE ---
late entry 12/19/21 1110 ns 1000 cc infused
== END 2021-12-19 12:30 | disposition home or self-care (01) ==
PROVIDERS: Emergency Provider Emergency Medicine; PCP Internal Medicine Infectious Disease
DX: R41.82 Altered mental status, unspecified (principal); G40.909 Epilepsy, unspecified, not intractable, without status epilepticus; I10 Essential (primary) hypertension; F32.A Depression, unspecified; F17.210 Nicotine dependence, cigarettes, uncomplicated; Z87.820 Personal history of traumatic brain injury; R94.31 Abnormal electrocardiogram [ECG] [EKG]
CPT/HCPCS: 36415; 70450; 80053; 80307; 81001; 82140; 82550; 82948; 85025; 93005; 96360; 99284; J7030

== ENCOUNTER 2022-01-05 16:26 | Emergency (ER) | payer OTHER, SELFPAY ==
[2022-01-05] VITALS (29 sets, daily range): BP systolic 122–149; BP diastolic 86–126; PULSE 86–111; RESP 10–21; TEMP 36.8; O2SAT 92–100
--- NOTE | ~2022-01-05 | CT_ITS ---
EXAMINATION: CT brain wo con DATE: 01/05/2022 17:40 INDICATION: Seizure. Altered mental status. TECHNIQUE: Computed tomography (CT) of the head was performed without intravenous contrast. The mA wa s adjusted according to patient size. Iterative reconstruction technique was employed. The dose-lengt h product was 681.00 mGy-cm. COMPARISON: Head CT 12/19/2021 FINDINGS: There is chronic encephalomalacia involving the left frontal lobe, left frontoparietal sabino on, left insula, left temporal lobe, and left temporal parietal region. There are scattered areas of low attenuation in the cerebral white matter. There is no intracranial hemorrhage, acute infarction, or abnormal intracranial mass lesion. The ventricles are normal in size. There are old blowout fractu res of medial wall and floor of left orbit. There are old fracture deformities of the nasal bones. Th e mastoid air cells are normal. IMPRESSION: 1. Chronic encephalomalacia in the cerebrum on the left. 2. Mild nonspecific cerebral white matter disease, which likely represents chronic small vessel ische kassi disease. Reviewed, dictated and finalized at location A. IMPRESSION: 1. Chronic encephalomalacia in the cerebrum on the left. 2. Mild nonspecific cerebral white matter disease, which likely represents building rental manager oly small vessel ischemic disease.
--- NOTE | 2022-01-05 16:49 | ECG_ITS ---
Measurements Intervals [place] Rate: 91 P: 42 WI: 150 QRS: 20 QRSD: 104 T: 47 QT: 362 QTc: 445 Interpretive Statements SINUS RHYTHM NORMAL ECG Electronically Signed On 01-05-2022 19:49:04 CDT by Raymundo Catalan D.O.
[2022-01-05 17:02] LABS: Basophils Percent Auto 0.4 % (0.2-1.2); Eosinophils Absolute Auto 0.1 K/mm3 (0-0.3); Eosinophils Percent Auto 1.3 % (0-4.4); Hematocrit 46.7 % (42.0-52.0); Hemoglobin 15.3 g/dL (14.0-18.0); Immature Granulocyte Absolute 0.03 K/mm3 (0.00-0.031); Immature Granulocyte Percent A 0.4 % (0-0.5); Lymphocytes Absolute Auto 1.24 K/mm3 (0.9-3.2); Lymphocytes Percent Auto 18.3 % (18.3-44.2); Mean Corpuscular HGB Conc 32.8 g/dl (32-36); Mean Corpuscular Volume 88.4 fl (80-100); Mean Platelet Volume 10.6 fl (7.4-10.4); Monocytes Absolute Auto 0.5 K/mm3 (0.1-0.6); Monocytes Percent Auto 7.5 % (2.6-8.5); Neutrophils Absolute Auto 4.9 K/mm3 (1.3-6.7); Neutrophils Percent Auto 72.1 % (45.5-73.1); Platelet Count Result 210 k/mm3 (150-375); Red Blood Count 5.28 M/mm3 (4.6-6.20); Red Cell Distribution Width 13.4 % (11.5-14.5); White Blood Count 6.8 K/mm3 (4.5-10.0)
[2022-01-05 17:14] LABS: Alanine Aminotransferase 33 U/L (4-50); Albumin Level 4.5 g/dL (3.5-5.1); Alkaline Phosphatase 75 U/L (38-126); Anion Gap 9 mmol/L (8-16); Aspartate Amino Transferase 28 U/L (17-59); Bilirubin,Total 0.1 mg/dL (0.2-1.3); Blood Urea Nitrogen 14 mg/dL (9-20); Carbon Dioxide 22 mmol/L (22-30); Chloride 106 mmol/L (98-107); Estimated CRCL calculation 92 ml/min; Estimated Glomerular Filt Rate > 60; Glucose 120 mg/dL (65-110); Sodium 137 mmol/L (137-145)
[2022-01-05 17:42] LABS: Ethanol < 10 mg/dL (<10)
--- NOTE | 2022-01-05 17:51 | ED.SEIZURE ---
HPI - Seizure General Chief Complaint: Seizure Stated Complaint: seizure Time Seen by Provider: 01/05/22 17:16 Source: patient Mode of arrival: EMS Limitations: clinical condition History of Present Illness HPI Narrative: This is a 51 year old male that presents to the ER after a possible seizure today. Reportedly patient had called for a lift assist. Upon arrival patient appeared to be confused. Patient has known history of seizure disorder and believes he had a seizure today. Patient is now alert and oriented. Has no current complaints. Reports he has been taking his antiepileptic drugs as prescribed. Denies vomiting, chest pain, shortness of breath, numbness or weakness. Seizure History: Yes Related Data Home Medications Medication Instructions Recorded Confirmed amlodipine 10 mg PO DAILY 07/12/19 07/15/21 citalopram 40 mg PO DAILY 07/12/19 07/15/21 folic acid 1 mg PO DAILY 07/12/19 07/15/21 oxcarbazepine 600 mg PO BID 07/12/19 07/15/21 spironolactone 50 mg PO DAILY 07/12/19 07/15/21 Bevespi Aerosphere 2 inh INHALATION BID 07/15/21 07/15/21 albuterol sulfate 1 puff INHALATION BID PRN 07/15/21 07/15/21 famotidine 40 mg PO BID 07/15/21 07/15/21 Allergies Allergy/AdvReac Type Severity Reaction Status Date / Time lisinopril Allergy Severe angio edema Verified 04/28/20 09:04 Iodinated Contrast Media Allergy Unknown Verified 04/28/20 09:04 iodine Allergy Unknown Verified 04/28/20 09:04 Contrast Media Allergy Mild Uncoded 04/28/20 09:04 Review of Systems Review of Systems: CONSTITUTIONAL: Denies fever EYES: Denies visual changes CARDIOVASCULAR: Denies chest pain RESPIRATORY: Denies dyspnea. GASTROINTESTINAL: Denies vomiting MUSCULOSKELETAL: Denies back pain, joint pain, or myalgia. NEUROLOGIC: Denies headache, numbness, or weakness. All systems reviewed & are unremarkable except as noted in HPI and below PMFSH Past Medical History Medical History Depression Hypertension Polysubstance abuse Seizures Traumatic brain injury Surgical History Surgical History H/O craniotomy Family History Family History Mother Diabetes mellitus Social History Social History Smoking packs per day: 0.5 Smoking cigarettes per day: 10.0 Years smoked: 35 Smoking pack-years: 17.50 Smoking status: Heavy tobacco smoker Tobacco type: cigarettes Alcohol intake: current Drinks per week: 7 Substance use: current Substance use type: marijuana Other substance usage details: Usually drinks a pint of alcohol daily, last drink 07/11/21 Last use: Cocaine in the past Gender identity (if verbalized by the patient): Male Spiritual care concerns: No Exam Narrative: GENERAL: Well-appearing, well-nourished, and in no acute distress. HEAD: Normocephalic, atraumatic. EYES: PERRLA and EOMI. ENT: Nares clear, no rhinorrhea or epistaxis. Mucous membranes moist. Oropharynx without tonsillar hypertrophy exudate or other lesions. Bilateral TMs pearly quinn non-bulging NECK: Supple. No adenopathy or masses. CHEST: Clear to auscultation. No respiratory distress. No wheezes rales or rhonchi HEART: Regular rate and rhythm. No murmur heard. Normal peripheral pulses. ABDOMEN: Soft, nontender, nondistended, normal active bowel sounds. EXTREMITIES: Normal range of motion. No edema or obvious deformity. SKIN: Warm, dry, no rash. NEURO: No focal deficits. Alert and oriented x3. PSYCH: Normal mood and affect Course Vital Signs Vital signs: Vital Signs Pulse Rate 99 01/05/22 16:31 Respiratory Rate 21 H 01/05/22 16:31 Pulse Oximetry 100 01/05/22 16:31 Temperature 98.2 F 01/05/22 16:32 Pulse Rate 91 01/05/22 18:01 Respiratory Rate 16 01/05/22 18:01 Blood Pressure 143/95 H 01/05/22 18:01 Pul
--- NOTE | 2022-01-05 18:00 | PC.NURSE ---
Patient attempting to urinate at this time.
--- NOTE | 2022-01-05 18:20 | PC.NURSE ---
Patient unable to urinate at this time. Refusing straight catheter.
[2022-01-05 19:39] LABS: Appearance Urine Clear (Clear); Bilirubin Urine Negative (Negative); Color Urine Yellow (Yellow); Glucose Urine UA Negative (Negative); Ketones Urine Negative (Negative); Leukocyte Esterase Ur Negative LEU/UL (Negative); Nitrate Urine Negative (Negative); Protein Urine Negative (Negative); Urobilinogen Urine 0.2 mg/dL (<2.0); pH Urine 7.5 (5.0-9.0)
[2022-01-05 19:47] LABS: Amphetamine Screen Urine Negative (Negative); Barbiturate Screen Urine Negative (Negative); Benzodiazepines Screen Urine Negative (Negative); Cannabinoid Screen Urine Positive (Negative); Cocaine Screen Urine Negative (Negative); Methadone Screen Urine Negative (Negative); Opiate Screen Urine Negative (Negative); Phencyclidine Screen Urine Negative (Negative)
[2022-01-05 19:57] LABS: Add Urine Microscopic? YES; Blood Urine Trace-Intact (Negative)
[2022-01-05 19:58] LABS: RBC Urine 0-2 /hpf (0-2); Squamous Epithelial Cell Urine Rare /hpf (Few); WBC Urine 0-3 /hpf
[2022-01-05] MEDS: OXcarbazepine 300 MG TABLET 600 MG PO (20:17)
[2022-01-05] MEDS: OXcarbazepine 150 MG TABLET PO (20:17)
== END 2022-01-05 20:45 | disposition home or self-care (01) ==
PROVIDERS: Physician Assistant; Emergency Provider Emergency Medicine; PCP Internal Medicine Infectious Disease
DX: G40.909 Epilepsy, unspecified, not intractable, without status epilepticus (principal); I10 Essential (primary) hypertension; F32.A Depression, unspecified; Z87.820 Personal history of traumatic brain injury; F17.210 Nicotine dependence, cigarettes, uncomplicated; R90.82 White matter disease, unspecified
CPT/HCPCS: 36415; 70450; 80053; 80307; 81001; 85025; 85610; 85730; 93005; 99284; A9270

== ENCOUNTER 2024-04-03 09:21 | Emergency (ER) | payer OTHER, SELFPAY ==
[2024-04-03] VITALS (7 sets, daily range): BP systolic 123–155; BP diastolic 64–107; PULSE 92–135; RESP 13–20; TEMP 36.9–37.2; O2SAT 93–100
--- NOTE | ~2024-04-03 | XR_ITS ---
EXAMINATION: XR chest 1V portable DATE: 04/03/2024 10:20 INDICATION: Seizure. TECHNIQUE: A single frontal view of the chest was obtained. COMPARISON: Chest single view 07/15/2021 FINDINGS: There is mild atelectasis in left lower lung zone. No pleural effusion or pneumothorax. The heart size is normal. IMPRESSION: 1. Mild atelectasis in left lower lung zone. Reviewed, dictated and finalized at location A.
[2024-04-03 10:01] LABS: Basophils Percent Auto 0.3 % (0.2-1.2); Hematocrit 47.3 % (42.0-52.0); Hemoglobin 15.9 g/dL (14.0-18.0); Immature Granulocyte Absolute 0.06 K/mm3 (0.00-0.031); Immature Granulocyte Percent A 0.5 % (0-0.5); Lymphocytes Absolute Auto 1.83 K/mm3 (0.9-3.2); Lymphocytes Percent Auto 15.9 % (18.3-44.2); Mean Corpuscular HGB Conc 33.6 g/dl (32-36); Mean Corpuscular Hemoglobin 29.3 pg (26-34); Mean Corpuscular Volume 87.1 fl (80-100); Mean Platelet Volume 10.2 fl (7.4-10.4); Monocytes Absolute Auto 1.2 K/mm3 (0.1-0.6); Monocytes Percent Auto 10.4 % (2.6-8.5); Neutrophils Absolute Auto 8.4 K/mm3 (1.3-6.7); Neutrophils Percent Auto 72.9 % (45.5-73.1); Platelet Count Result 257 k/mm3 (150-375); Red Blood Count 5.43 M/mm3 (4.6-6.20); White Blood Count 11.5 K/mm3 (4.5-10.0)
[2024-04-03 10:13] LABS: Alanine Aminotransferase 32 U/L (6-50); Albumin Level 5.1 g/dL (3.5-5.1); Alkaline Phosphatase 75 U/L (38-126); Anion Gap 10 mmol/L (4-12); Aspartate Amino Transferase 26 U/L (17-59); Bilirubin,Total 0.6 mg/dL (0.2-1.3); Blood Urea Nitrogen 23 mg/dL (9-20); Calcium 9.6 mg/dL (8.4-10.2); Carbon Dioxide 23 mmol/L (22-30); Chloride 103 mmol/L (98-107); Estimated CRCL calculation 58 ml/min; Estimated Glomerular Filt Rate 51; Glucose 129 mg/dL (65-110); Potassium 3.8 mmol/L (3.4-5.0); Sodium 136 mmol/L (137-145)
[2024-04-03] MEDS: SODIUM CHLORIDE 0.9% IV 1,000 ML 999 ML IV CONT ×2 (10:26)
[2024-04-03 10:45] LABS: Ethanol < 10 mg/dL (<10)
[2024-04-03 12:21] LABS: Amphetamine Screen Urine Negative (Negative); Barbiturate Screen Urine Negative (Negative); Benzodiazepines Screen Urine Negative (Negative); Cannabinoid Screen Urine Positive (Negative); Cocaine Screen Urine Positive (Negative); Methadone Screen Urine Negative (Negative); Opiate Screen Urine Negative (Negative); Phencyclidine Screen Urine Negative (Negative)
[2024-04-03 13:48] LABS: Estimated CRCL calculation 74 ml/min; Estimated Glomerular Filt Rate > 60
--- NOTE | 2024-04-03 15:00 | PC.NURSE ---
RN entered room, turned lights on, repositioned patient, and offered water per EDP. Pt still very fatigued, attempting to fall asleep again. made aware.
--- NOTE | 2024-04-03 15:12 | ED.SEIZURE ---
HPI - Seizure General Chief Complaint: Seizure Stated Complaint: seizure, postictal Time Seen by Provider: 04/03/24 09:26 History of Present Illness HPI Narrative: Patient is a 53-year-old male who presents ER after having a seizure at home. Patient has known seizure disorder. Mother reports he is compliant with his medication. She gave him a dose to take with him before he when out with friends last night. She reports he stayed out late. He then sees this morning. Patient has history of polysubstance abuse. Patient's mother administered diazepam 20 mg intranasally to break the seizure. Seizure History: Yes Related Data Home Medications Medication Instructions Recorded Confirmed amlodipine 10 mg tablet 10 mg PO DAILY 07/12/19 07/15/21 citalopram 40 mg tablet 40 mg PO DAILY 07/12/19 07/15/21 folic acid 1 mg tablet 1 mg PO DAILY 07/12/19 07/15/21 oxcarbazepine 300 mg tablet 600 mg PO BID 07/12/19 04/03/24 spironolactone 50 mg tablet 50 mg PO DAILY 07/12/19 04/03/24 albuterol sulfate 90 mcg/actuation 1 puff inhalation BID PRN 07/15/21 04/03/24 aerosol inhaler Shortness Of Breath Or Wheezing famotidine 20 mg tablet 40 mg PO BID 07/15/21 07/15/21 glycopyrrolate 9 mcg-formoterol 2 inh inhalation BID 07/15/21 07/15/21 4.8 mcg HFA aerosol inhaler (Bevespi Aerosphere) Allergies Allergy/AdvReac Type Severity Reaction Status Date / Time lisinopril Allergy Severe angio edema Verified 04/28/20 09:04 Iodinated Contrast Media Allergy Unknown Verified 04/28/20 09:04 iodine Allergy Unknown Verified 04/28/20 09:04 Contrast Media Allergy Mild Uncoded 04/28/20 09:04 Review of Systems Review of Systems: ROS unobtainable: Yes unobtainable due to medical condition PMFSH Past Medical History Medical History Depression Hypertension Polysubstance abuse Seizures Traumatic brain injury Surgical History Surgical History H/O craniotomy Family History Family History Mother Diabetes mellitus Social History Social History Smoking packs per day: 0.5 Smoking cigarettes per day: 10.0 Years smoked: 35 Smoking pack-years: 17.50 Smoking status: Heavy tobacco smoker Tobacco type: cigarettes Alcohol intake: current Drinks per week: 7 Substance use: current Substance use type: marijuana Other substance usage details: Usually drinks a pint of alcohol daily, last drink 07/11/21 Last use: Cocaine in the past Gender identity (if verbalized by the patient): Male Spiritual care concerns: No Exam Narrative: GENERAL: Postictal-appearing, well-nourished, and in no acute distress. HEAD: Normocephalic, atraumatic. EYES: PERRL and EOMI. ENT: Mucous membranes moist. CHEST: Clear to auscultation. No respiratory distress. HEART: Regular rate and rhythm. Normal peripheral pulses. ABDOMEN: Soft, nontender, nondistended. EXTREMITIES: Normal range of motion. No edema. SKIN: Warm, dry, no rash. NEURO: Sedated, moves all extremities. After waking up orient x3. Course Vital Signs Vital signs: Vital Signs Temperature 98.4 F 04/03/24 09:45 Pulse Rate 135 H 04/03/24 09:45 Respiratory Rate 20 04/03/24 09:45 Blood Pressure 151/107 H 04/03/24 09:45 Pulse Oximetry 95 04/03/24 09:45 Oxygen Delivery Room Air 04/03/24 09:45 Temperature 98.7 F 04/03/24 14:58 Pulse Rate 95 04/03/24 14:58 Respiratory Rate 20 04/03/24 14:58 Blood Pressure 146/87 H 04/03/24 14:58 Pulse Oximetry 94 04/03/24 14:58 Oxygen Delivery Room Air 04/03/24 09:50 MDM - Seizure MDM Narrative Medical decision making narrative: -Course: Patient sedated due to intranasal Valium 20 mg. Prolonged observation. No seizures. Awake alert oriented and eating and drinking. -Co-mor
[2024-04-08 09:15] LABS: Carbamazepine Tegretol <0.2 mcg/mL (4.0-12.0)
== END 2024-04-03 15:56 | disposition home or self-care (01) ==
PROVIDERS: Emergency Provider Emergency Medicine; PCP Internal Medicine Infectious Disease
DX: G40.909 Epilepsy, unspecified, not intractable, without status epilepticus (principal); I10 Essential (primary) hypertension; F32.A Depression, unspecified; Z87.820 Personal history of traumatic brain injury; Z79.899 Other long term (current) drug therapy; F17.210 Nicotine dependence, cigarettes, uncomplicated; F19.10 Other psychoactive substance abuse, uncomplicated
CPT/HCPCS: 36415; 71045; 80053; 80156; 80307; 82565; 85025; 96360; 96361; 99283; J7030

== ENCOUNTER 2025-03-28 15:04 | Emergency (ER) | payer OTHER, SELFPAY ==
[2025-03-28] VITALS (11 sets, daily range): BP systolic 134–165; BP diastolic 92–108; PULSE 96–111; RESP 16–20; TEMP 36.7–37.1; O2SAT 93–98
--- NOTE | ~2025-03-28 | CT_ITS ---
EXAMINATION: CT diagnostic chest wo con DATE: 03/28/2025 20:37 INDICATION: abscess on back TECHNIQUE: Computed tomography (CT) of the chest was performed with 100 mL Omnipaque-350 intravenous contrast. Automated exposure control and iterative reconstruction technique were employed. The dose-l ength product was 376.30 mGy-cm. COMPARISON: CT abdomen pelvis 03/11/2018. FINDINGS: CHEST: Thoracic aorta: No significant dilation or calcification. Lung parenchyma and airways: Dependent atelectasis. Bilateral lung scarring. Patent airways. Thoracic inlet, axillae and chest wall: Symmetric gynecomastia. No thyroid mass. No axillary lymphade nopathy. Ill-defined area of subcutaneous induration/soft tissue density over the left upper back eddy suring approximately 1.9 x 9.0 x 5.2 cm, with scattered bubbles of subcutaneous gas. No definite disc rete fluid collection. Adjacent dermal thickening. Mediastinum: No mass or lymphadenopathy. Heart and pericardium: Normal heart size. No pericardial effusion. Mild aortic valve calcification. Coronary artery calcifications: Mild. Pleura: No effusion or mass. Upper abdomen: Cholelithiasis. Punctate bilateral renal calcifications. Left renal cyst. 1.6 cm indet erminate density left adrenal nodule, stable since 2018, likely adenoma. Thoracic bones: No acute osseous finding in the chest. IMPRESSION: 1.9 x 9.0 x 5.2 cm area of phlegmon or abscess in the soft tissues of the left upper back, evaluation limited without contrast. Adjacent dermal thickening may reflect cellulitis. Reviewed, dictated and finalized at location K.
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
--- OUTSIDE RECORDS SUMMARY | 2025-03-28 15:05 | XMS_ITS | Clinical Summary ---
Author Organization [facility] Address [address] [place] [address] Phone Care Team Providers Care Logistics System Engineer Name Role Phone Provider, Unknown Unavailable Unavailable Provider, None Primary Care Provider Unavailabl e Allergies Active Allergy Reactions Criticality Noted Date Comments Iodinated Contrast Media Unknown 04/13/2016 Iodinated Contrast Media Nausea 03/12/2016 Medications citalopram (CELEXA) 40 MG Tablet Take 1 Tab by mouth daily. 30 Tab 2 6 Active sucralfate (CARAFATE) 1 GM Tablet Take 1 Tab by mouth every 6 hours. 60 Tab 7 Active famotidine (PEPCID) 20 MG Tablet Take 1 Tab by mouth 2 times daily as needed. 30 Tab 7 Active folic acid (FOLVITE) 1 MG Tablet Take 1 mg by mouth daily. Active amLODIPine (NORVASC) 10 MG Tablet Take 10 mg by mouth 2 times daily. 7 Active lisinopril-hydro CHLOROthiazide (PRINZIDE, ZESTORETIC) 20-12.5 MG Tablet Take 1 Tab by mouth 2 times daily. 7 Active ondansetron (ZOFRAN-ODT) 4 MG TABLET DISPERSIBLE Take 1 Tab by mouth every 8 hours as needed for Nausea. 10 Tab 7 Active Meloxicam 15 MG Tablet Take 1 Tab by mouth daily. 10 Tab 7 Active PHENobarbital (LUMINAL) 100 MG Tablet Take 500 mg by mouth daily. Active albuterol 108 (90 Base) MCG/ACT Aerosol Solution take 2 Puffs by inhalation every 6 hours as needed for Wheezing. 1 Inhaler 9 Active budesonide-formo terol fumarate (SYMBICORT) 80-4.5 MCG/ACT Aerosol take 2 Puffs by inhalation 2 times daily. MUST USE EVERY DAY TO BE EFFECTIVE 1 Inhaler 9 Active predniSONE (DELTASONE) 10 MG Tablet TAKE 4 TABLETS DAILY X3 DAYS THEN 3 TABLETS DAILY X3 DAYS THEN 2 TABLETS DAILY X3 DAYS THEN 1 TABLET DAILY X3 DAYS 30 Tab 9 Active Active Problems No known active problems Immunizations Immunization Administration Dates Next Due TDAP Vaccine 04/14/2017 Social History Tobacco Use Types Packs/Day Years Used Date Smoking Tobacco: Every Day Cigarettes Smokeless Tobacco: Never Alcohol Use Standard Drinks/Week Comments Yes 1 (1 standard drink = 0.6 oz pur e alcohol) 40 oz a day Sex and Gender Information Value Date Recorded Sex Assigned at Not on file Legal Sex Male 9:59 PM CDT Gender Identity Not on file Sexual Orientation Not on file Last Filed Vital Signs Vital Sign Reading Time Taken Comments Blood Pressure 131/96 06/05/2023 10:15 AM CDT Pulse 98 06/05/2023 12:00 PM CDT Temperature 36.7 C (98.1 F) 06/05/2023 6:45 AM CDT Respiratory Rate 16 06/05/2023 8:45 AM CDT Oxygen Saturation 98% 06/05/2023 12:00 PM CDT Inhaled Oxygen Concentration - - Weight 93.2 kg (205 lb 8 oz) 06/05/2023 6:45 AM CDT Height 175.3 cm (5' 9) 06/05/2023 6:45 AM CDT Body Mass Index 30.35 06/05/2023 6:45 AM CDT Plan of Treatment Health Maintenance Due Date Last Done Comments Hepatitis C Virus (HCV) Screening 1969 Hepatitis B Immunization (1 of 3 - 19+ 3-dose series) 1988 Pneumococcal Immunization (50+ years) (1 of 2 - PCV) 1988 Cologuard 2014 Colonoscopy 2014 Colorectal Cancer Screening 2014 Immunochemical Fecal Occult Blood 2014 Zoster Immunization (1 of 2) 12/08/2019 SARS-COV-2 Immunization ( season) 2024 07/20/2021, 12/17/2020, 11/19/2020 PSA Discussion 2024 Influenza Immunization (#1) 05/03/202507/04, 08/12/2019, 08/07/2019, Additional history exists Td Immunization Every 10 Years (Adults With 1 Tdap) 08/12/2029 08/12/2019, 01/31/2019, 04/14/2017, Additional history exists Respiratory Syncytial Virus (RSV) Immunization (Adult) (1 - 1-dose 75+ series) 2044 DTaP/Tdap/Td Immunization Discontinued 2018, 01/31/2019, 04/14/2017, Additional history exists Meningococcal Immunization (ACWY) Aged Out 08/12/2019 No longer eligible based on patient's age to complete this topic Human Papillomavirus (HPV) Immunization Aged Out No longer eligible based on patient's age to complete this topic Rotavirus Immunization Aged Out No lo nger eligible based on patient's age to complete this topic Insurance MEDICAID DUPREE MEDICAID DUPREE Care Teams Logistics System Engineer Relationship Specialty Start Date End Date Provider, None [place] PCP - General 05/09/18 Provider, Unknown UNKNOWN 04/13/16
--- NOTE | 2025-03-28 16:07 | ED.SKABFB ---
HPI - Skin/Abscess/Foreign Bdy General Chief complaint: Skin/Abscess/Foreign Body <Philly Arvizu PA-C - Last Filed: 03/29/25 00:37> Stated complaint: POST OP PROBLEMS <Philly Arvizu PA-C - Last Filed: 03/29/25 00:37> Time Seen by Provider: 03/28/25 16:02 <Philly Arvizu PA-C - Last Filed: 03/29/25 00:37> Source: patient <Philly Arvizu PA-C - Last Filed: 03/29/25 00:37> Mode of arrival: ambulatory <YUNG Richardson Last Filed: 03/29/25 00:37> Limitations: no limitations <Philly Arvizu PA-C - Last Filed: 03/29/25 00:37> History of Present Illness HPI narrative: This is a 54 year old male that presents to the ER for abnormal drainage from surgical wound. Reports he had a lipoma removed removed 9 days ago. He had a drain that was removed a couple of days ago. Reports the area is draining purulent drainage. Surgeon was Dr. Maldonado at [facility]. Denies fevers. <Philly Arvizu PA-C - Last Filed: 03/29/25 00:37> Related Data Home medications: Home Medications ?Medication ?Instructions ?Recorded ?Confirmed ?Last Taken ?Type amlodipine 10 mg tablet 10 mg PO DAILY 07/12/19 07/15/21 07/15/21 09:00 History citalopram 40 mg tablet 40 mg PO DAILY 07/12/19 07/15/21 07/15/21 09:00 History folic acid 1 mg tablet 1 mg PO DAILY 07/12/19 07/15/21 07/15/21 09:00 History oxcarbazepine 300 mg tablet 600 mg PO BID 07/12/19 04/03/24 07/15/21 09:00 History spironolactone 50 mg tablet 50 mg PO DAILY 07/12/19 04/03/24 07/15/21 09:00 History albuterol sulfate 90 mcg/actuation 1 puff inhalation BID PRN 07/15/21 04/03/24 Unknown History aerosol inhaler Shortness Of Breath Or Wheezing famotidine 20 mg tablet 40 mg PO BID 07/15/21 07/15/21 07/15/21 09:00 History glycopyrrolate 9 mcg-formoterol 2 inh inhalation BID 07/15/21 07/15/21 07/15/21 09:00 History 4.8 mcg HFA aerosol inhaler (Bevespi Aerosphere) <Philly Arvizu PA-C - Last Filed: 03/29/25 00:37> Allergies/Adverse reactions: Allergies Allergy/AdvReac Type Severity Reaction Status Date / Time lisinopril Allergy Severe angio edema Verified 04/28/20 09:04 Iodinated Contrast Media Allergy Unknown Verified 04/28/20 09:04 iodine Allergy Unknown Verified 04/28/20 09:04 Contrast Media Allergy Mild Uncoded 04/28/20 09:04 <Philly Arvizu PA-C - Last Filed: 03/29/25 00:37> Review of Systems Review of Systems: All systems reviewed & are unremarkable except as noted in HPI and below <Philly Arvizu PA-C - Last Filed: 03/29/25 00:37> [facility] Past Medical History Medical History: Medical History Depression Hypertension Polysubstance abuse Seizures Traumatic brain injury <Philly Arvizu PA-C - Last Filed: 03/29/25 00:37> Surgical History Surgical History: Surgical History H/O craniotomy <Philly Arvizu PA-C - Last Filed: 03/29/25 00:37> Family History Family History: Family History Mother Diabetes mellitus <Philly Arvizu PA-C - Last Filed: 03/29/25 00:37> Social History Social History: Social History Smoking packs per day: 0.5 Smoking cigarettes per day: 10.0 Years smoked: 35 Smoking pack-years: 17.50 Smoking status: Heavy tobacco smoker Tobacco type: cigarettes Alcohol intake: current Drinks per week: 7 Substance use: current Substance use type: marijuana Other substance usage details: Usually drinks a pint of alcohol daily, last drink 07/11/21 Last use: Cocaine in the past Gender identity (if verbalized by the patient): Male Spiritual care concerns: No <YUNG Richardson Last Filed: 03/29/25 00:37> Exam Narrative: GENERAL: Well-appearing, well-nourished, and in no acute distress. HEAD: Normocephalic, atraumatic. EYES: EOMI. CHEST: No respiratory distress. HEART: Regular rate BACK: Left upper back with erythema, induration surrounding incision site with purulent drainage from drain site EXTREMITIES: Normal range of motion. No edema. SKIN: Warm, dry, no rash. NEURO: No focal deficits. Alert and oriented x3. PSYCH: Normal mood and affect <Philly Arvizu PA-C - Last Filed: 03/29/25 00:37> Course Course Emergency Course: I attempted to contact patient's plastic surgeon several times without success <Philly Arvizu PA-C - Last Filed: 03/29/25 00:37> SHOT BAGGER/PA Physician Supervision I agree with midlevel documentation; I performed the medical decision making component of this evaluation. Patient presents with likely postop infection, multiple attempts to reach his plastic surgeon were unsuccessful, hospitalist at the outside hospital refused transfer; patient has had care at [facility] in the past so discussed with [facility] and accepted there at [facility], patient and family comfortable with plan, patient transferring stable/improved condition. <Saranya Sam MD - Last Filed: 03/29/25 01:18> Consultations Consultation #1: [facility] refused patient as transfer <Philly Arvizu PA-C - Last Filed: 03/29/25 00:37> Date: 03/28/25 <YUNG Richardson Last Filed: 03/29/25 00:37> Consultation #2: Dr. Diallo recommends transfer for evaluation by plastics <YUNG Richardson Last Filed: 03/29/25 00:37> Date: 03/28/25 <YUNG Richardson Last Filed: 03/29/25 00:37> Consultation #3: [facility] has accepted patient as transfer <Philly Arvizu PA-C - Last Filed: 03/29/25 00:37> Date: 03/28/25 <Philly Arvizu PA-C - Last Filed: 03/29/25 00:37> Vital Signs Vital signs: Vital Signs Temperature 98.7 F 03/28/25 15:05 Pulse Rate 111 H 03/28/25 15:05 Respiratory Rate 18 03/28/25 15:05 Blood Pressure 148/108 H 03/28/25 15:05 Pulse Oximetry 97 03/28/25 15:05 Temperature 98.3 F 03/29/25 00:01 Pulse Rate 97 03/29/25 00:34 Respiratory Rate 18 03/29/25 00:34 Blood Pressure 156/99 H 03/29/25 00:34 Pulse Oximetry 97 03/29/25 00:34 Oxygen Delivery Room Air 03/28/25 19:56 <YUNG Richardson Last Filed: 03/29/25 00:37> Vital Signs Temperature 98.7 F 03/28/25 15:05 Pulse Rate 111 H 03/28/25 15:05 Respiratory Rate 18 03/28/25 15:05 Blood Pressure 148/108 H 03/28/25 15:05 Pulse Oximetry 97 03/28/25 15:05 Temperature 98.3 F 03/29/25 00:01 Pulse Rate 97 03/29/25 00:34 Respiratory Rate 18 03/29/25 00:34 Blood Pressure 156/99 H 03/29/25 00:34 Pulse Oximetry 97 03/29/25 00:34 Oxygen Delivery Room Air 03/28/25 19:56 <Kodi Dean MD - Last Filed: 03/28/25 18:53> Vital Signs Temperature 98.7 F 03/28/25 15:05 Pulse Rate 111 H 03/28/25 15:05 Respiratory Rate 18 03/28/25 15:05 Blood Pressure 148/108 H 03/28/25 15:05 Pulse Oximetry 97 03/28/25 15:05 Temperature 98.3 F 03/29/25 00:01 Pulse Rate 97 03/29/25 00:34 Respiratory Rate 18 03/29/25 00:34 Blood Pressure 156/99 H 03/29/25 00:34 Pulse Oximetry 97 03/29/25 00:34 Oxygen Delivery Room Air 03/28/25 19:56 <Saranya Sam MD - Last Filed: 03/29/25 01:18> Procedures Other Procedure Procedure 1: Other Procedure: PROCEDURE PERFORMED BY DR KODI DEAN at 03/28/25 18:45 Procedure Note: Ultrasound-guided peripheral venous catheter insertion An ultrasound-guided peripheral venous catheter is required in order to obtain vascular access in this patient. Alcohol prep pad is used to sterilize the area and a 20 gauge catheter was successfully inserted into a L radial vein under ultrasound visualization. The catheter flushes and draws back without difficulty or signs of extravasation. Catheter secured in place with Tegaderm. <Kodi Dean MD - Last Filed: 03/28/25 18:53> MDM - Skin/Abscess/Foreign Bdy MDM Narrative Medical decision making narrative: Patient presents the emergency department for redness, swelling, abnormal drainage from recent surgical site. Patient had a lipoma removed by Dr. Maldonado at [facility] about a week and a half ago. Patient is afebrile and nontoxic appearing. Tachycardic upon arrival, this normalized with IV fluids. Cbc with leukocytosis to 11.9. CRP is elevated at 6.2. Lactic acid is not elevated. CT chest showing 1.9 x 9 x 5.2 cm area of phlegmon or abscess in the soft tissues of left upper back. Wound culture, blood cultures obtained. Patient started on IV antibiotics. I attempted to contact patient's plastic surgeon several times without success. [facility] refused patient as transfer. Dr. Diallo recommends transfer for evaluation by plastics. [facility] has accepted patient as transfer 00:37 Patient's ambulance is here for transport <Philly Arvizu PA-C - Last Filed: 03/29/25 00:37> Differential Diagnosis Differential diagnosis: Likely abscess of skin or subcutaneous tissue and cellulitis <Philly Arvizu PA-C - Last Filed: 03/29/25 00:37> Lab Data Attestation: I reviewed the patient's lab results. <Philly Arvizu PA-C - Last Filed: 03/29/25 00:37> Result diagrams: 03/28/25 18:51 03/28/25 18:51 <Philly Arvizu PA-C - Last Filed: 03/29/25 00:37> Labs: Lab Results 03/28/25 03/28/25 Range/Units 18:51 18:52 WBC 11.9 H (4.5-10.0) K/mm3 RBC 5.39 (4.6-6.20) M/mm3 Hgb 15.7 (14.0-18.0) g/dL Hct 46.3 (42.0-52.0) % MCV 85.9 (80-100) fl MCH 29.1 (26-34) pg MCHC 33.9 (32-36) g/dl RDW 13.2 (11.5-14.5) % Plt Count 243 (150-375) k/mm3 MPV 10.0 (7.4-10.4) fl Immature Gran % (Auto) 0.3 (0-0.5) % Neut % (Auto) 77.0 H (45.5-73.1) % Lymph % (Auto) 12.5 L (18.3-44.2) % Banner % (Auto) 9.7 H (2.6-8.5) % Eos % (Auto) 0.2 (0-4.4) % Baso % (Auto) 0.3 (0.2-1.2) % Lymph # (Auto) 1.49 (0.9-3.2) K/mm3 Banner # (Auto) 1.2 H (0.1-0.6) K/mm3 Eos # (Auto) 0.0 (0-0.3) K/mm3 Baso # (Auto) 0.0 (0.0-0.1) K/mm3 Abs Immat Gran (auto) 0.03 (0.00-0.031) K/mm3 Absolute Neuts (auto) 9.2 H (1.3-6.7) K/mm3 Absolute Nucleated RBC 0.000 (0.0-0.012) K/mm3 Band Neutrophils % Not Reportable Nucleated RBC % 0.0 (0.0-0.2) % Platelet Estimate Adequate (Adequate) % Immature Plt Fraction 3.7 (0.9-11.2) % Schistocytes None seen ESR 16 (0-20) mm/hr PT 13.1 (11.1-14.7) Seconds INR 1.0 APTT 21.1 L (22.3-36.8) Seconds Sodium 136 L (137-145) mmol/L Potassium 3.7 (3.4-5.0) mmol/L Chloride 102 (98-107) mmol/L Carbon Dioxide 22 (22-30) mmol/L Anion Gap 12 (4-12) mmol/L BUN 8 L D (9-20) mg/dL Creatinine 0.73 (0.7-1.3) mg/dL Estim Creat Clear Calc 102 ml/min Estimated GFR > 60 (59 - ) Glucose 114 H (65-110) mg/dL Lactic Acid 1.0 (0.7-2.0) mmol/L Calcium 9.4 (8.4-10.2) mg/dL C-Reactive Protein 6.2 H (<1.0) mg/dL <Philly Arvizu PA-C - Last Filed: 03/29/25 00:37> Lab Results 03/28/25 03/28/25 Range/Units 18:51 18:52 WBC 11.9 H (4.5-10.0) K/mm3 RBC 5.39 (4.6-6.20) M/mm3 Hgb 15.7 (14.0-18.0) g/dL Hct 46.3 (42.0-52.0) % MCV 85.9 (80-100) fl MCH 29.1 (26-34) pg MCHC 33.9 (32-36) g/dl RDW 13.2 (11.5-14.5) % Plt Count 243 (150-375) k/mm3 MPV 10.0 (7.4-10.4) fl Immature Gran % (Auto) 0.3 (0-0.5) % Neut % (Auto) 77.0 H (45.5-73.1) % Lymph % (Auto) 12.5 L (18.3-44.2) % Banner % (Auto) 9.7 H (2.6-8.5) % Eos % (Auto) 0.2 (0-4.4) % Baso % (Auto) 0.3 (0.2-1.2) % Lymph # (Auto) 1.49 (0.9-3.2) K/mm3 Banner # (Auto) 1.2 H (0.1-0.6) K/mm3 Eos # (Auto) 0.0 (0-0.3) K/mm3 Baso # (Auto) 0.0 (0.0-0.1) K/mm3 Abs Immat Gran (auto) 0.03 (0.00-0.031) K/mm3 Absolute Neuts (auto) 9.2 H (1.3-6.7) K/mm3 Absolute Nucleated RBC 0.000 (0.0-0.012) K/mm3 Band Neutrophils % Not Reportable Nucleated RBC % 0.0 (0.0-0.2) % Platelet Estimate Adequate (Adequate) % Immature Plt Fraction 3.7 (0.9-11.2) % Schistocytes None seen ESR 16 (0-20) mm/hr PT 13.1 (11.1-14.7) Seconds INR 1.0 APTT 21.1 L (22.3-36.8) Seconds Sodium 136 L (137-145) mmol/L Potassium 3.7 (3.4-5.0) mmol/L Chloride 102 (98-107) mmol/L Carbon Dioxide 22 (22-30) mmol/L Anion Gap 12 (4-12) mmol/L BUN 8 L D (9-20) mg/dL Creatinine 0.73 (0.7-1.3) mg/dL Estim Creat Clear Calc 102 ml/min Estimated GFR > 60 (59 - ) Glucose 114 H (65-110) mg/dL Lactic Acid 1.0 (0.7-2.0) mmol/L Calcium 9.4 (8.4-10.2) mg/dL C-Reactive Protein 6.2 H (<1.0) mg/dL <Kodi Dean MD - Last Filed: 03/28/25 18:53> Lab Results 03/28/25 03/28/25 Range/Units 18:51 18:52 WBC 11.9 H (4.5-10.0) K/mm3 RBC 5.39 (4.6-6.20) M/mm3 Hgb 15.7 (14.0-18.0) g/dL Hct 46.3 (42.0-52.0) % MCV 85.9 (80-100) fl MCH 29.1 (26-34) pg MCHC 33.9 (32-36) g/dl RDW 13.2 (11.5-14.5) % Plt Count 243 (150-375) k/mm3 MPV 10.0 (7.4-10.4) fl Immature Gran % (Auto) 0.3 (0-0.5) % Neut % (Auto) 77.0 H (45.5-73.1) % Lymph % (Auto) 12.5 L (18.3-44.2) % Banner % (Auto) 9.7 H (2.6-8.5) % Eos % (Auto) 0.2 (0-4.4) % Baso % (Auto) 0.3 (0.2-1.2) % Lymph # (Auto) 1.49 (0.9-3.2) K/mm3 Banner # (Auto) 1.2 H (0.1-0.6) K/mm3 Eos # (Auto) 0.0 (0-0.3) K/mm3 Baso # (Auto) 0.0 (0.0-0.1) K/mm3 Abs Immat Gran (auto) 0.03 (0.00-0.031) K/mm3 Absolute Neuts (auto) 9.2 H (1.3-6.7) K/mm3 Absolute Nucleated RBC 0.000 (0.0-0.012) K/mm3 Band Neutrophils % Not Reportable Nucleated RBC % 0.0 (0.0-0.2) % Platelet Estimate Adequate (Adequate) % Immature Plt Fraction 3.7 (0.9-11.2) % Schistocytes None seen ESR 16 (0-20) mm/hr PT 13.1 (11.1-14.7) Seconds INR 1.0 APTT 21.1 L (22.3-36.8) Seconds Sodium 136 L (137-145) mmol/L Potassium 3.7 (3.4-5.0) mmol/L Chloride 102 (98-107) mmol/L Carbon Dioxide 22 (22-30) mmol/L Anion Gap 12 (4-12) mmol/L BUN 8 L D (9-20) mg/dL Creatinine 0.73 (0.7-1.3) mg/dL Estim Creat Clear Calc 102 ml/min Estimated GFR > 60 (59 - ) Glucose 114 H (65-110) mg/dL Lactic Acid 1.0 (0.7-2.0) mmol/L Calcium 9.4 (8.4-10.2) mg/dL C-Reactive Protein 6.2 H (<1.0) mg/dL <Saranya Sam MD - Last Filed: 03/29/25 01:18> Imaging Data Radiologist's impression: ITS Impressions Chest CT 03/28/25 21:17 IMPRESSION: 1.9 x 9.0 x 5.2 cm area of phlegmon or abscess in the soft tissues of the left upper back, evaluation limited without contrast. Adjacent dermal thickening may reflect cellulitis. <Philly Arvizu PA-C - Last Filed: 03/29/25 00:37> Critical Care Time Critical Care Time Critical Care Time: No <Philly Arvizu PA-C - Last Filed: 03/29/25 00:37> Discharge Plan Discharge Clinical Impression: Abscess Post op infection Qualifiers: Encounter type: initial encounter Postoperative infection type: unspecified type Qualified Code(s): T81.40XA - Infection following a procedure, unspecified, initial encounter <Philly Arvizu PA-C - Last Filed: 03/29/25 00:37> Patient Disposition: Acute Care Hospital <Philly Arvizu PA-C - Last Filed: 03/29/25 00:37> Condition: Stable <Philly Arvizu PA-C - Last Filed: 03/29/25 00:37> Patient Language: Greenlandic <YUNG Richardson Last Filed: 03/29/25 00:37> Prescriptions: No Action famotidine 20 mg tablet 40 mg PO BID albuterol sulfate 90 mcg/actuation HFA aerosol inhaler 1 puff INHALATION BID PRN (Reason: Shortness Of Breath Or Wheezing) Bevespi Aerosphere 9-4.8 mcg HFA aerosol inhaler 2 inh INHALATION BID doxycycline hyclate 100 mg capsule 100 mg PO BID 10 Days Qty: 20 0RF metronidazole 500 mg tablet 500 mg PO Q12H 7 Days Qty: 14 0RF oxcarbazepine 300 mg Tablet 600 mg PO BID spironolactone 50 mg Tablet 50 mg PO DAILY amlodipine 10 mg Tablet 10 mg PO DAILY folic acid 1 mg Tablet 1 mg PO DAILY citalopram 40 mg Tablet 40 mg PO DAILY acetaminophen 500 mg capsule 500 mg PO Q6H PRN (Reason: pain) Qty: 14 0RF Bevespi Aerosphere 9-4.8 mcg HFA aerosol inhaler 2 puff inhalation Q12H Qty: 10.7 0RF <Philly Arvizu PA-C - Last Filed: 03/29/25 00:37> Follow-up/Referrals: Sherry,Mary Kay Macias [Primary Care Provider] - <Philly Arvizu PA-C - Last Filed: 03/29/25 00:37>
--- OUTSIDE RECORDS SUMMARY | 2025-03-28 16:25 | XMS_ITS | Clinical Summary ---
Author Organization [facility] [employer] Address [address] [place] [address] Care Team Providers Care Cheesemaker Name Role Phone Colleen Powell MD Primary Care Provider Source Comments [facility] Affiliates and Associated Physician Practices is amultiple site organization consisting of ambulatory clinics and hospital sitesin [place] and [place]. This disclosure is being madepursuant to the Care Everywhere program and may not contain all information available regarding this patient. Last updated 18.[facility] [employer] Allergies Active Allergy Reactions Criticality Noted Date [...] MG/0.1ML) nasal sprayIndication s:Post traumatic epilepsy (HCC) [place] 0.2 mL into the nose as needed [...] Condition: stable Patient gave verbal consent for [facility] telehealth visit. 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 Gender Identity Not on file Sexual Orientation Not on file Last Filed Vital Signs Vital Sign Reading Time Taken Comments Blood Pressure 143/84 11/18/2024 8:40 AM CDT Pulse 120 11/18/2024 8:40 AM CDT Temperature 36.1 C (96.9 F) 09/18/2023 1:28 PM LAUNDRY HOUSEKEEPER Respiratory Rate 16 01/31/2019 6:47 AM CDT [...] Office Visit [facility] - Neurology [address] [place] [address], [place] [address] Izaiah Stoner MD [address] [place] [address] [place] [id number] Health Maintenance Due Date Last Done Comments [...] patient's age to complete this topic Insurance [facility] Care Teams Cheesemaker Relationship Specialty Start Date End Date Colleen Powell MD [address] [place], [place] [phone] PCP - General 08/19/19
--- OUTSIDE RECORDS SUMMARY | 2025-03-28 16:25 | XMS_ITS | Clinical Summary ---
Author Organization [facility] Address [address] [place] [address] Phone Care Team Providers Care Tack Picker Name Role Phone Provider, Unknown Unavailable Unavailable [...] Insurance MEDICAID DUPREE MEDICAID DUPREE Care Teams Tack Picker Relationship Specialty Start Date End Date Provider, None [place] PCP - General 05/09/18 Provider, Unknown UNKNOWN 04/13/16
--- NOTE | 2025-03-28 17:20 | PC.NURSE ---
This RN attempted to get IV access x2 times with no success. Pt states he usually requires US IV placement. US certified RN will attempt line on this patient.
[2025-03-28 19:03] LABS: Hematocrit 46.3 % (42.0-52.0); Hemoglobin 15.7 g/dL (14.0-18.0); Immature Granulocyte Percent A 0.3 % (0-0.5); Immature Platelet Fraction Pct 3.7 % (0.9-11.2); Lymphocytes Absolute Auto 1.49 K/mm3 (0.9-3.2); Mean Corpuscular HGB Conc 33.9 g/dl (32-36); Mean Corpuscular Hemoglobin 29.1 pg (26-34); Mean Corpuscular Volume 85.9 fl (80-100); Nucleated Red Blood Cells Absolute Auto 0.000 K/mm3 (0.0-0.012); Nucleated Red Blood Cells Perc 0.0 % (0.0-0.2); Platelet Count Result 243 k/mm3 (150-375); Red Blood Count 5.39 M/mm3 (4.6-6.20); White Blood Count 11.9 K/mm3 (4.5-10.0)
[2025-03-28 19:14] LABS: Schistocytes None Seen
[2025-03-28 19:15] LABS: Anion Gap 12 mmol/L (4-12); Blood Urea Nitrogen 8 mg/dL (9-20); CRP 6.2 mg/dL (<1.0); Calcium 9.4 mg/dL (8.4-10.2); Carbon Dioxide 22 mmol/L (22-30); Chloride 102 mmol/L (98-107); Estimated CRCL calculation 102 ml/min; Estimated Glomerular Filt Rate > 60; Glucose 114 mg/dL (65-110); Potassium 3.7 mmol/L (3.4-5.0); Sodium 136 mmol/L (137-145)
[2025-03-28 19:19] LABS: INR 1.0; Prothrombin Time 13.1 Seconds (11.1-14.7)
[2025-03-28 19:20] LABS: Partial Thromboplastin Time 21.1 Seconds (22.3-36.8)
--- NOTE | 2025-03-28 19:20 | PC.NURSE ---
Report received from GENIA Redman. Assumed care of patient at this time.
--- NOTE | 2025-03-28 20:20 | PC.NURSE ---
PA notified that patients IV was not functional and was removed. PA states she will have ERP attempt to place US line.
--- NOTE | 2025-03-28 20:29 | PC.NURSE ---
Patient taken to CT at this time.
[2025-03-28] MEDS: ACETAMINOPHEN 500 MG TABLET 1000 MG PO (20:53)
[2025-03-28] MEDS: SODIUM CHLORIDE 0.9% IV 1,000 ML 999 ML IV CONT (21:33)
[2025-03-28] MEDS: ceFAZolin 1 GM in SODIUM CHLORIDE 0.9% IV 50 ML 100 ML IVPB (21:58)
--- NOTE | 2025-03-28 22:01 | PC.NURSE ---
Patients family at bedside and states I just gave him his seizure medications. PA notified.
--- NOTE | 2025-03-28 22:48 | PC.NURSE ---
Patient and his family speak with this RN that he does not want to go back to [facility], he feels he did not get the proper care and that with the issues now, he does not want to go back. PA notified and speaking with patient and family.
--- NOTE | 2025-03-28 23:44 | PC.NURSE ---
2338 Thea with [facility] calls to give room number of [id number], accepted by for Post Op abscess with phone number of [phone] to call report. 2 Nurse to nurse report called to GENIA Dacosta at [facility] at [phone] at [phone]. Olesya leaves her phone number to call when patient leaves for [facility].
[2025-03-29 00:01] VITALS: BP 165/99; PULSE 99; RESP 17; TEMP 36.8; O2SAT 99
[2025-03-29 00:34] VITALS: BP 156/99; PULSE 97; RESP 18; O2SAT 97
--- NOTE | 2025-03-29 00:40 | PC.NURSE ---
This RN callled ovver to [facility] [place] and spoke with GENIA Dacosta to notify of patient leaving at time via EMS. This RN notified Olesya, that the patient may need a nicotine patch at some point.
== END 2025-03-29 00:41 | disposition short-term general hospital (02) ==
PROVIDERS: Emergency Provider Physician Assistant; PCP Internal Medicine Infectious Disease
DX: T81.41XA Infection following a procedure, superficial incisional surgical site, initial encounter (principal); L02.212 Cutaneous abscess of back [any part, except buttock and flank]; I10 Essential (primary) hypertension; F32.A Depression, unspecified; F17.210 Nicotine dependence, cigarettes, uncomplicated; Z87.820 Personal history of traumatic brain injury; Y83.8 Other surgical procedures as the cause of abnormal reaction of the patient, or of later complication, without mention of misadventure at the time of the procedure
CPT/HCPCS: 36415; 71250; 80048; 83605; 85025; 85055; 85610; 85652; 85730; 86140; 87040; 87070; 87075; 87205; 96361; 96365; 99285; A9270; J0690; J7030